=== PATIENT | female | born 1975 | race Caucasian/White ===

== ENCOUNTER → 2017-07-10 | Outpatient (CLI) | payer BC ==
--- NOTE | 2017-07-10 09:18 | MM ---
Reason for exam: screening (asymptomatic). Baseline mammogram. History: Taking hormonal contraceptives for 2 years beginning at age 40. Physical Findings: Nurse did not find any significant physical abnormalities on exam. MG Screening Mammo w CAD Bilateral CC and MLO view(s) were taken. The breast tissue is heterogeneously dense. This may lower the sensitivity of mammography. Finding: There are faint linear calcifications in the lower inner quadrant, middle position of the right breast 6cm from the nipple. These results were verbally communicated with the patient and result sheet given to the patient on 07/10/17. ASSESSMENT: Incomplete: need additional imaging evaluation, BI-RAD 0 RECOMMENDATION: Special view mammogram of the right breast. [facility] will attempt to contact patient to return for supplemental views.
--- NOTE | 2017-07-10 09:19 | MM ---
Reason for exam: additional evaluation requested from abnormal screening. History: Taking hormonal contraceptives for 2 years beginning at age 40. Physical Findings: Breast exam preformed at baseline screening. MG Work Up Mamm w CAD RT CC with magnification and ML with magnification view(s) were taken of the right breast. The breast tissue is heterogeneously dense. This may lower the sensitivity of mammography. There is no discrete abnormality on magnification views. These results were verbally communicated with the patient and result sheet given to the patient on 07/10/17. ASSESSMENT: Probably benign, BI-RAD 3 RECOMMENDATION: Follow-up diagnostic mammogram of the right breast in 6 months.
== END | disposition home or self-care (01) ==
LOC: RADMAMWWP 07:48
PROVIDERS: ATTEND Obstetrics & Gynecology
DX: Z12.31 Encounter for screening mammogram for malignant neoplasm of breast (principal); R92.8 Other abnormal and inconclusive findings on diagnostic imaging of breast
CPT/HCPCS: 77065; 77067

== ENCOUNTER 2017-12-14 21:04 | Emergency (ER) | payer BC, OTHER ==
[2017-12-14 21:10] VITALS: BP 120/82; PULSE 59; RESP 18; TEMP 97.8
[2017-12-14] MEDS ORDERED: CLINDAMYCIN 150 MG CAP PO STA (21:46)
[2017-12-14] MEDS ORDERED: HYDROcodone/APAP 5-325MG 1 EACH TAB PO STA (21:52)
--- NOTE | 2017-12-14 21:59 | ED ---
General Adult HPI - General Chief complaint: Dental/Oral Stated complaint: dental pain Time Seen by Provider: 12/14/17 21:11 Source: patient, RN notes reviewed Mode of arrival: ambulatory Limitations: no limitations - History of Present Illness Initial comments: 42-year-old female presents to the emergency department for a chief complaint of tooth pain 2 days. Patient states that she has had a cavity in the tooth for months. She states that she was eating trail mix about 2 weeks ago and she cracked her tooth. She states she had an appointment with her dentist and he scheduled a root canal for 5 days from now. She states that for the past 2 days she has started to have pain on the right side of the face from the tooth. She states it is traveling into the right ear. She denies any difficulty opening or closing her jaw. She denies any difficulty swallowing. She denies any swelling under the tongue. She denies any neck pain or stiffness. She states she is concerned she may need antibiotics. She states she has been taking Motrin and it has only been helping minimally. Patient has no other complaints at this time including shortness of breath, chest pain, abdominal pain, nausea or vomiting, headache, or visual changes. - Related Data Previous Rx's Medication Instructions Recorded Clindamycin [Cleocin] 450 mg PO Q8H 10 Days capsule 12/14/17 Ibuprofen [Motrin] 800 mg PO Q8H PRN #20 tab 12/14/17 Allergies Allergy/AdvReac Type Severity Reaction Status Date / Time Penicillins Allergy Rash/Hives Verified 12/14/17 21:10 Review of Systems ROS Statement: Those systems with pertinent positive or pertinent negative responses have been documented in the HPI. ROS Other: All systems not noted in ROS Statement are negative. Past Medical History Past Medical History: No Reported History History of Any Multi-Drug Resistant Organisms: None Reported Past Surgical History: Cholecystectomy, Tonsillectomy Additional Past Surgical History / Comment(s): gastric sleeve Past Psychological History: No Psychological Hx Reported Smoking Status: Never smoker Past Alcohol Use History: None Reported Past Drug Use History: None Reported General Exam Limitations: no limitations General appearance: alert, in no apparent distress Head exam: Present: atraumatic, normocephalic, normal inspection Eye exam: Present: normal appearance, PERRL, EOMI. Absent: scleral icterus, conjunctival injection, periorbital swelling ENT exam: Present: normal exam, mucous membranes moist, TM's normal bilaterally , normal external ear exam. Absent: normal oropharynx (Tenderness to tooth 4 with percussion of tongue blade. Tooth 1 through 3 are missing. No evidence of abscess with inspection or palpation of the gumline. Uvula midline. No tenderness or swelling noted sublingually.) Neck exam: Present: normal inspection, full ROM. Absent: tenderness, meningismus, lymphadenopathy Respiratory exam: Present: normal lung sounds bilaterally. Absent: respiratory distress, wheezes, rales, rhonchi, stridor Cardiovascular Exam: Present: regular rate, normal rhythm, normal heart sounds. Absent: systolic murmur, diastolic murmur, rubs, gallop, clicks Neurological exam: Present: alert, oriented X3, CN II-XII intact Psychiatric exam: Present: normal affect, normal mood Course Vital Signs 12/14/17 21:06 Temperature 97.8 F Pulse Rate 59 L Respiratory 18 Rate Blood Pressure 120/82 O2 Sat by Pulse 100 Oximetry Medical Decision Making - Medical Decision Making 42-year-old female presents for a chief complaint of until pain 2 days. Patient states she is scheduled for a root canal in 5 days. She states that 2 days ago she suddenly started to have pain in the right-sided face. She states it is all over today from the tooth. She has shooting pain to the right ear. She denies neck pain or stiffness, swelling under the tongue, or difficulty opening the jaw. Patient has tenderness to percussion of tooth 4. No evidence of abscess on inspection. Patient is penicillin ALLERGIC. She will be given clindamycin. She was given a dose here. Patient also requests a prescription for Motrin 800. She states she has been taking for Motrin 200s but states she does not like to swallow for pills. She was given this prescription by educated to food when taking this medication. She will follow-up with her dentist on Saturday. She will return here if she has any worsening symptoms. Disposition Clinical Impression: Pain, dental Disposition: HOME SELF-CARE Condition: Good Instructions: Dental Caries (ED) Additional Instructions: Please take antibiotic as directed. Please take Motrin and Tylenol for pain. Please follow-up with dentist in 1-2 days. Attend your appointment for a root canal next week. Return to the emergency department if you have any worsening symptoms. Prescriptions: Clindamycin [Cleocin] 450 mg PO Q8H 10 Days capsule Ibuprofen [Motrin] 800 mg PO Q8H PRN #20 tab PRN Reason: Pain Is patient prescribed a controlled substance at d/c from ED?: No Referrals: Destin Soliman MD [Primary Care Provider] - 1-2 days Time of Disposition: 22:00
== END 2017-12-14 22:20 | disposition home or self-care (01) ==
LOC: EC 21:04
DX: K08.89 Other specified disorders of teeth and supporting structures (principal); Z88.0 Allergy status to penicillin
CPT/HCPCS: 99282

== ENCOUNTER 2019-11-27 18:45 | Emergency (ER) | payer OTHER ==
[2019-11-27] MEDS ORDERED: ACET/COD 300 MG/30 MG STARTER PACK 6 TAB BTL PO STA (19:38)
[2019-11-27] MEDS ORDERED: KETOROLAC 15 MG/ML 1 ML VIAL IM STA (19:38)
[2019-11-27] MEDS ORDERED: Acetaminophen-Codeine 300-30mg TAB PO STA (19:38)
[2019-11-27] MEDS ORDERED: methylPREDNISolone SOD SUCCI 125 MG/2 ML VIAL IM ONE (19:38)
--- NOTE | 2019-11-27 20:01 | ED ---
General Adult HPI - General Chief complaint: Back Pain/Injury Stated complaint: Backpain Time Seen by Provider: 11/27/19 19:05 Source: patient, RN notes reviewed, old records reviewed Mode of arrival: ambulatory Limitations: no limitations - History of Present Illness Initial comments: 44-year-old female patient presents to ED for evaluation of left paralumbar back pain. Patient forced that she is of back pain her whole life however she isn't having back pain worse for the last 6 months or so. Patient reports that she has been having radiculopathies down her left gluteal region going down to her leg. She denies any recent falls or trauma. She denies any saddle anesthesia or loss of bowel or bladder control or any weakness. Patient saw her primary care provider for this and reportedly had x-rays. Denies any other acute complaints. Denies any chance of . Systemic: Pt denies fatigue, fever/chills, rash. Pt denies weakness, night s weats, weight loss. Neuro: Pt denies headache, visual disturbances, syncope or pre-syncope. HEENT: Pt denies ocular discharge or irritation, otalgia, rhinorrhea, pharyngitis or notable lymphadenopathy. Cardiopulmonary: Pt denies chest pain, SOB, heart palpitations, dyspnea on exertion. Abdominal/GI: Pt denies abdominal pain, n/v/d. : Pt denies dysuria, burning w/ urination, frequency/urgency. Denies new onset urinary or bowel incontinence. Neuro: Pt denies new onset weakness. - Related Data Previous Rx's Medication Instructions Recorded Clindamycin [Cleocin] 450 mg PO Q8H 10 Days capsule 12/14/17 Ibuprofen [Motrin] 800 mg PO Q8H PRN #20 tab 12/14/17 predniSONE 50 mg PO DAILY #5 tab 11/27/19 Allergies Allergy/AdvReac Type Severity Reaction Status Date / Time Penicillins Allergy Rash/Hives Verified 11/27/19 18:56 Review of Systems ROS Statement: Those systems with pertinent positive or pertinent negative responses have been documented in the HPI. ROS Other: All systems not noted in ROS Statement are negative. Past Medical History Past Medical History: No Reported History Additional Past Medical History / Comment(s): back pain History of Any Multi-Drug Resistant Organisms: None Reported Past Surgical History: Cholecystectomy, Tonsillectomy Additional Past Surgical History / Comment(s): gastric sleeve Past Psychological History: No Psychological Hx Reported Smoking Status: Never smoker Past Alcohol Use History: None Reported Past Drug Use History: None Reported General Exam - General Exam Comments Initial Comments: Constitutional: NAD, AOX3, Pt has pleasant affect. HEENT: NC/AT, trachea midline, neck supple, no lymphadenopathy. External ears appear normal, without discharge. Mucous membranes moist. Eyes PERRLA, EOM intact. There is no scleral icterus. No pallor noted. Cardiopulmonary: RRR, no murmurs, rubs or gallops, no JVD noted. Lungs CTAB in anterior and posterior guillaume. No peripheral edema. Abdominal exam: Abdomen soft and non-distended. Neuro: CN II-XII grossly intact. No nuchal rigidity. No raccon eyes, no gonsales sign, no hemotympanum. No cervical spinal tenderness. MSK: No posterior calf tenderness bilaterally, homans sign negative bilaterally. Posterior tibialis and radial pulse +2 bilaterally. Sensation intact in upper and lower extremities. Full active ROM in upper and lower extremities, 5/5 stregnth. 5/5 strength psoas, quadriceps, hamstring muscles lower extremity bilaterally. Heel toe walking is intact. Sensation is intact. Limitations: no limitations Course Vital Signs 11/27/19 18:52 Temperature 98.8 F Pulse Rate 94 Respiratory 18 Rate Blood Pressure 128/88 O2 Sat by Pulse 99 Oximetry Medical Decision Making - Medical Decision Making 44-year-old female patient presents ED for evaluation of lumbar back pain with radiculopathy. Ongoing the last 6 months. Denies any red flag symptoms. Patient recently had plain films are decision-making does not wish to have any more done today. Will be treated with burst steroids and will be given outpatient follow-up with orthopedics as was primary care provider. Case discussed with Dr. Miller. Disposition Clinical Impression: Lumbar back sprain Disposition: HOME SELF-CARE Condition: Stable Instructions (If sedation given, give patient instructions): Acute Low Back Pain (ED) Additional Instructions: Take steroids as directed. May use Tylenol #3 as needed for pain. Return to ER if any worsening symptoms. Follow up with orthopedic consult tomorrow. Follow-up with primary care provider tomorrow. Prescriptions: predniSONE 50 mg PO DAILY #5 tab Is patient prescribed a controlled substance at d/c from ED?: No Referrals: Rajendra Sage DO [Primary Care Provider] - 1-2 days Hieu Álvarez DO [Doctor of Osteopathic Medicine] - 1-2 days
[2019-11-27 21:20] VITALS: BP 123/76; PULSE 78; RESP 16; TEMP 98.4
== END 2019-11-27 20:47 | disposition home or self-care (01) ==
LOC: EC 18:45
DX: S33.5XXA Sprain of ligaments of lumbar spine, initial encounter (principal); M54.16 Radiculopathy, lumbar region; Z88.0 Allergy status to penicillin; X58.XXXA Exposure to other specified factors, initial encounter
CPT/HCPCS: 99284; 96372 ×2; J2930; J1885

== ENCOUNTER 2019-11-28 08:02 | Emergency (ER) | payer OTHER ==
[2019-11-28 08:07] VITALS: BP 151/80; PULSE 83; RESP 18; TEMP 98.5
[2019-11-28] MEDS ORDERED: HYDROmorphone 1 MG/ML 1 ML SYRINGE IM STA (08:37)
--- NOTE | 2019-11-28 08:40 | ED ---
Back Pain HPI - General Chief Complaint: Back Pain/Injury Stated Complaint: lower back pain Time Seen by Provider: 11/28/19 08:09 Source: patient, RN notes reviewed Limitations: no limitations - History of Present Illness Initial Comments: This is a 44-year-old female presents emergency Department with chief complaint low back pain. She's been having worsening back pain last 6 months. Patient states she had no falls or injuries. Patient states she started with chronic back pain since age 16. Patient states that she was told to take magnesium, do stretching and to lose weight by her PCP. Patient states has not helped. Patient states that the pain persisted and has been rating down her left leg for almost 2 months. Patient states that she has some numbness and tingling. She denies any decreased strength or any function. Patient states that she's had no bowel incontinence or bladder retention. Patient states she has no saddle anesthesias. Patient states that symptoms radiate down her left leg and posterior aspect to his toes. She states all the pain is in her low back. Patient has no mental abdominal pain. Patient states that she was started on steroids yesterday was given Tylenol with codeine with minimal relief of her symptoms. Patient states she does get relief of symptoms when she lays on her back. She states that she was going to the chiropractor every other day for several weeks. - Related Data Previous Rx's Medication Instructions Recorded Clindamycin [Cleocin] 450 mg PO Q8H 10 Days capsule 12/14/17 Ibuprofen [Motrin] 800 mg PO Q8H PRN #20 tab 12/14/17 predniSONE 50 mg PO DAILY #5 tab 11/27/19 HYDROcodone/APAP 7.5-325MG [[place] 1 tab PO Q6HR PRN 3 Days #12 tab 11/28/19 7.5-325] Orphenadrine [Norflex] 100 mg PO Q12H #14 tablet.er 11/28/19 Allergies Allergy/AdvReac Type Severity Reaction Status Date / Time Penicillins Allergy Rash/Hives Verified 11/28/19 08:07 Review of Systems ROS Statement: Those systems with pertinent positive or pertinent negative responses have been documented in the HPI. ROS Other: All systems not noted in ROS Statement are negative. Past Medical History Past Medical History: No Reported History Additional Past Medical History / Comment(s): back pain History of Any Multi-Drug Resistant Organisms: None Reported Past Surgical History: Cholecystectomy, Tonsillectomy Additional Past Surgical History / Comment(s): gastric sleeve Past Psychological History: No Psychological Hx Reported Smoking Status: Never smoker Past Alcohol Use History: None Reported Past Drug Use History: None Reported General Exam Limitations: no limitations General appearance: alert, in no apparent distress Head exam: Present: atraumatic, normocephalic, normal inspection Neck exam: Present: normal inspection, full ROM. Absent: tenderness, meningismus, lymphadenopathy Respiratory exam: Present: normal lung sounds bilaterally. Absent: respiratory distress, wheezes, rales, rhonchi, stridor Cardiovascular Exam: Present: regular rate, normal rhythm, normal heart sounds. Absent: systolic murmur, diastolic murmur, rubs, gallop, clicks GI/Abdominal exam: Present: soft, normal bowel sounds. Absent: distended, tenderness, guarding, rebound, rigid Extremities exam: Present: other (Lower extremity strength equal bilaterally there is no calf tenderness, equal color equal warmth there is no significant swelling) Back exam: Present: normal inspection, full ROM (Patient has full range of motion but reports moderate discomfort), tenderness (Lumbar), paraspinal tenderness. Absent: CVA tenderness (R), CVA tenderness (L), muscle spasm, vertebral tenderness Neurological exam: Present: alert, oriented X3, CN II-XII intact, normal gait, reflexes normal. Absent: motor sensory deficit Skin exam: Present: warm, dry, intact, normal color. Absent: rash Course Vital Signs 11/28/19 08:04 Temperature 98.5 F Pulse Rate 83 Respiratory 18 Rate Blood Pressure 151/80 O2 Sat by Pulse 98 Oximetry Medical Decision Making - Medical Decision Making 44-year-old female presents did for low back pain she's had prior x-rays with no acute findings. She's been recommended to follow up with MRI and has appointment scheduled for this. Patient will follow-up with on-call orthopedic back specialist Dr. Álvarez and will continue steroids. Patient provided pain relief. She has no red flag symptoms. Patient be discharged in stable condition return parameters were discussed. Disposition Clinical Impression: Lumbar radiculopathy, Lumbar back pain Disposition: HOME SELF-CARE Condition: Stable Instructions (If sedation given, give patient instructions): Acute Low Back Pain (ED), Lumbar Radiculopathy (ED), Lower Back Exercises (ED) Additional Instructions: Please return to the Emergency Department if symptoms worsen or any other concerns. Prescriptions: HYDROcodone/APAP 7.5-325MG [[place] 7.5-325] 1 tab PO Q6HR PRN 3 Days #12 tab PRN Reason: pain Orphenadrine [Norflex] 100 mg PO Q12H #14 tablet.er Is patient prescribed a controlled substance at d/c from ED?: Yes When asked, does pt state using other controlled substances?: No If prescribed controlled substance>3 days was MAPS reviewed?: Prescribed <3 Days If opioid is for acute pain is fill amount 7 days or less?: Yes If Rx opioid, was Start Talking consent form obtained?: Yes Referrals: Rajendra Sage DO [Primary Care Provider] - 1-2 days Hieu Álvarez DO [Doctor of Osteopathic Medicine] - 1-2 days Time of Disposition: 08:38
== END 2019-11-28 08:48 | disposition home or self-care (01) ==
LOC: EC 08:02
DX: M54.16 Radiculopathy, lumbar region (principal); Z88.0 Allergy status to penicillin
CPT/HCPCS: 99283; 96372; J1170

== ENCOUNTER 2019-12-03 11:39 | Inpatient (IN) | payer OTHER ==
[2019-12-03] MEDS ORDERED: MORPHINE SULFATE 4 MG/ML SYRINGE IVP STA (12:11)
[2019-12-03] MEDS ORDERED: KETOROLAC 15 MG/ML 1 ML VIAL IVP STA (12:11)
[2019-12-03] MEDS ORDERED: DEXAMETHASONE SOD PHOSPHATE 10 MG/ML 1 ML VIAL IV STA (12:12)
--- NOTE | 2019-12-03 12:23 | ED ---
Back Pain HPI - General Source: patient, RN notes reviewed, old records reviewed Limitations: no limitations <Valorie Altamirano - Last Filed: 12/03/19 15:43> <Tita Miller - Last Filed: 12/09/19 00:55> - General Chief Complaint: Back Pain/Injury Stated Complaint: Revisit - Back Pain Time Seen by Provider: 12/03/19 11:52 - History of Present Illness Initial Comments: this Patient is a 44-year-old female who presents emergency department today with chief complaint of chronic lower back pain. She reports it's been severe for the past 3-6 months but acutely worse over the past week. She denied any specific fall or trauma for worsening pain. She reports the pain is severe she does any standing or moving. She lays with her back on a flat surface she reports relief of her symptoms. She's been taking muscle relaxers pain medication and steroids as prescribed from 2 previous ER visits. She denies saddle anesthesias. She states that she has an upcoming appointment tomorrow with. Back specialist. Patient reports that the pain was unbearable today and she came to the ER for the third time. Patient denies any chest pain, nausea or vomiting. She reports no changes in stools or urine. she reports that she had an x-ray done 3 weeks ago by her PCP. (Valorie Altamirano) - Related Data Home Medications Medication Instructions Recorded Confirmed HYDROcodone/APAP 7.5-325MG [[place] 1 tab PO Q6H PRN 12/03/19 12/03/19 7.5-325] Orphenadrine [Norflex] 100 mg PO Q12H PRN 12/03/19 12/03/19 Previous Rx's Medication Instructions Recorded Cyclobenzaprine [Flexeril] 10 mg PO TID PRN #40 tab 12/06/19 Hydrocodone/Acetaminophen [[place] 1 tab PO Q4-6H PRN #56 tab 12/06/19 7.5-325] Ibuprofen [Motrin] 600 mg PO Q6HR PRN #90 tab 12/06/19 Sennosides/Docusate Sodium [[place] 1 each PO BID PRN #20 capsule 12/06/19 Plus 8.6-50 mg Softgel] Allergies Allergy/AdvReac Type Severity Reaction Status Date / Time Penicillins Allergy Rash/Hives Verified 12/03/19 15:45 Review of Systems ROS Other: All systems not noted in ROS Statement are negative. <Valorie Altamirano - Last Filed: 12/03/19 15:43> ROS Other: All systems not noted in ROS Statement are negative. <Tita Miller - Last Filed: 12/09/19 00:55> ROS Statement: Those systems with pertinent positive or pertinent negative responses have been documented in the HPI. Past Medical History Past Medical History: No Reported History Additional Past Medical History / Comment(s): back pain History of Any Multi-Drug Resistant Organisms: None Reported Past Surgical History: Cholecystectomy, Tonsillectomy Additional Past Surgical History / Comment(s): gastric sleeve Past Psychological History: No Psychological Hx Reported Smoking Status: Never smoker Past Alcohol Use History: None Reported Past Drug Use History: None Reported <Valorie Altamirano - Last Filed: 12/03/19 15:43> General Exam Limitations: no limitations General appearance: alert, in no apparent distress Head exam: Present: atraumatic, normocephalic, normal inspection Eye exam: Present: normal appearance, PERRL, EOMI. Absent: scleral icterus, conjunctival injection, periorbital swelling ENT exam: Present: normal exam, mucous membranes moist Neck exam: Present: normal inspection. Absent: tenderness, meningismus, lymphadenopathy Respiratory exam: Present: normal lung sounds bilaterally. Absent: respiratory distress, wheezes, rales, rhonchi, stridor Cardiovascular Exam: Present: regular rate, normal rhythm, normal heart sounds. Absent: systolic murmur, diastolic murmur, rubs, gallop, clicks GI/Abdominal exam: Present: soft, normal bowel sounds. Absent: distended, tenderness, guarding, rebound, rigid Extremities exam: Present: normal inspection, full ROM, normal capillary refill. Absent: tenderness, pedal edema, joint swelling, calf tenderness Back exam: Present: normal inspection Neurological exam: Present: alert, oriented X3, CN II-XII intact Psychiatric exam: Present: normal affect, normal mood Skin exam: Present: warm, dry, intact, normal color. Absent: rash <Valorie Altamirano - Last Filed: 12/03/19 15:43> - General Exam Comments Initial Comments: his is an alert and oriented 44-year-old female. Patient is laying flat on the bed. Patient appears in moderate discomfort. (Valorie Altamirano) Course Vital Signs 12/03/19 12/03/19 12/03/19 11:40 12:45 14:30 Temperature 97.2 F L Pulse Rate 78 64 61 Respiratory 8 L 18 18 Rate Blood Pressure 129/89 135/75 139/69 O2 Sat by Pulse 99 100 99 Oximetry 12/03/19 12/03/19 15:56 19:06 Temperature 98.1 F 97.9 F Pulse Rate 68 74 Respiratory 18 18 Rate Blood Pressure 121/63 119/67 O2 Sat by Pulse 98 100 Oximetry Medical Decision Making - Lab Data Result diagrams: 12/03/19 12:17 12/03/19 12:17 - Radiology Data Radiology results: report reviewed <Valorie Altamirano - Last Filed: 12/03/19 15:43> - Lab Data Result diagrams: 12/06/19 05:39 12/06/19 05:39 <Tita Miller - Last Filed: 12/09/19 00:55> - Medical Decision Making 44-year-old female presents return today for the third time this week for intractable back pain. Taking steroids muscle relaxers and pain medication without relief. Patient states she down the left leg. She denies saddle anesthesias. Patient had a computed tomography scan today which shows L5-S1 disc herniation with S1 nerve encroachment. Patient inverted his results and discuss is consistent with patient's pain and symptoms. With Patient being here for 3 times and pain management not controlled at home discussed [place] for observation. IV steroids anti-inflammatory medicine. Patient was intending to see Dr. Edwards tomorrow. Patient will have consult to Dr. Álvarez. (Valorie Altamirano) I was available for consultation in the emergency department. The history and physical exam were done by the midlevel provider. I was consulted for this patients care. I reviewed the case with the midlevel provider and based on their presentation of the patient, I agree with the assessment, medical decision making and plan of care as documented. Chart was dictated using [employer] dictation software. Attempts were made to correct any dictation errors however some typographical errors may persist. Patient was seen during a national state of emergency due to the Covid-19 pandemic. (Tita Miller) - Lab Data Lab Results 12/03/19 12/03/19 12/03/19 Range/Units 12:17 12:17 12:17 WBC 11.0 H (3.8-10.6) k/uL RBC 4.60 (3.80-5.40) m/uL Hgb 13.7 (11.4-16.0) gm/dL Hct 43.9 (34.0-46.0) % MCV 95.3 (80.0-100.0) fL MCH 29.7 (25.0-35.0) pg MCHC 31.2 (31.0-37.0) g/dL RDW 12.8 (11.5-15.5) % Plt Count 301 (150-450) k/uL Neutrophils % 65 % Lymphocytes % 27 % Monocytes % 6 % Eosinophils % 1 % Basophils % 0 % Neutrophils # 7.1 (1.3-7.7) k/uL Lymphocytes # 3.0 (1.0-4.8) k/uL Monocytes # 0.6 (0-1.0) k/uL Eosinophils # 0.1 (0-0.7) k/uL Basophils # 0.0 (0-0.2) k/uL ESR (0-20) mm/hr PT 10.5 (9.0-12.0) sec INR 1.0 (<1.2) APTT 21.9 L (22.0-30.0) sec Sodium 137 (137-145) mmol/L Potassium 4.0 (3.5-5.1) mmol/L Chloride 101 (98-107) mmol/L Carbon Dioxide 31 H (22-30) mmol/L Anion Gap 5 mmol/L BUN 17 (7-17) mg/dL Creatinine 0.56 (0.52-1.04) mg/dL Est GFR (CKD-EPI)AfAm >90 (>60 ml/min/1.73 sqM) Est GFR (CKD-EPI)NonAf >90 (>60 ml/min/1.73 sqM) Glucose 92 (74-99) mg/dL Calcium 9.2 (8.4-10.2) mg/dL C-Reactive Protein (<10.0) mg/L HCG, Qual 12/04/19 12/04/1920 Range/Units 11:15 11:15 11:15 WBC (3.8-10.6) k/uL RBC (3.80-5.40) m/uL Hgb (11.4-16.0) gm/dL Hct (34.0-46.0) % MCV (80.0-100.0) fL MCH (25.0-35.0) pg MCHC (31.0-37.0) g/dL RDW (11.5-15.5) % Plt Count (150-450) k/uL Neutrophils % % Lymphocytes % % Monocytes % % Eosinophils % % Basophils % % Neutrophils # (1.3-7.7) k/uL Lymphocytes # (1.0-4.8) k/uL Monocytes # (0-1.0) k/uL Eosinophils # (0-0.7) k/uL Basophils # (0-0.2) k/uL ESR 3 (0-20) mm/hr PT (9.0-12.0) sec INR (<1.2) APTT (22.0-30.0) sec Sodium (137-145) mmol/L Potassium (3.5-5.1) mmol/L Chloride (98-107) mmol/L Carbon Dioxide (22-30) mmol/L Anion Gap mmol/L BUN (7-17) mg/dL Creatinine (0.52-1.04) mg/dL Est GFR (CKD-EPI)AfAm (>60 ml/min/1.73 sqM) Est GFR (CKD-EPI)NonAf (>60 ml/min/1.73 sqM) Glucose (74-99) mg/dL Calcium (8.4-10.2) mg/dL C-Reactive Protein 9.0 (<10.0) mg/L HCG, Qual Not Detected - Radiology Data Degenerative changes and lower spine as detailed above. Eccentric disc herniation L5-S1 level appears to Left S1 Nerve. Correlate Clinically. (Valorie Altamirano) Disposition Is patient prescribed a controlled substance at d/c from ED?: No Time of Disposition: 15:45 <Valorie Altamirano - Last Filed: 12/03/19 15:43> <Tita Miller - Last Filed: 12/09/19 00:55> Clinical Impression: Lumbar back pain, Intractable back pain Disposition: ADMITTED IP TO THIS [facility] Condition: Stable
[2019-12-03 13:19] LABS: Basophils % (A) 0 %; Eosinophils # (A) 0.1 k/uL (0-0.7); Eosinophils % (A) 1 %; HCT 43.9 % (34.0-46.0); HGB 13.7 gm/dL (11.4-16.0); Lymphocytes % (A) 27 %; MCH 29.7 pg (25.0-35.0); MCHC 31.2 g/dL (31.0-37.0); MCV 95.3 fL (80.0-100.0); Mean Platelet Volume 7.9; Monocytes # (A) 0.6 k/uL (0-1.0); Monocytes % (A) 6 %; Neutrophils # (A) 7.1 k/uL (1.3-7.7); Neutrophils % (A) 65 %; Platelet Count 301 k/uL (150-450); RDW 12.8 % (11.5-15.5)
[2019-12-03 13:36] LABS: African American GFR (CKD) >90 (>60 ml/min/1.73 sqM); Anion Gap 5 mmol/L; Blood Urea Nitrogen 17 mg/dL (7-17); Calcium 9.2 mg/dL (8.4-10.2); Carbon Dioxide 31 mmol/L (22-30); Chloride 101 mmol/L (98-107); Glucose 92 mg/dL (74-99); Non-African American GFR(CKD) >90 (>60 ml/min/1.73 sqM); Sodium 137 mmol/L (137-145)
[2019-12-03 13:37] LABS: Partial Thromboplastin Time 21.9 sec (22.0-30.0); Prothrombin Time 10.5 sec (9.0-12.0)
--- NOTE | 2019-12-03 14:38 | CT ---
EXAMINATION TYPE: CT lumbar spine wo con DATE OF EXAM: 12/03/2019 2:04 PM COMPARISON: None. HISTORY: Sciatica, 3rd visit per order. Low back pain. CT DLP: 1174.5 mGycm Automated exposure control for dose reduction was used. Unenhanced CT of the lumbar spine was performed. Bone and soft tissue window settings are submitted as well as coronal and sagittal reconstructions. 5 lumbar type vertebra are present. Lumbar spine show satisfactory alignment without evidence of acut e fracture or dislocation. Vertebral body heights and disc space heights are maintained. Spinal canal grossly preserved. Axial images show upper to mid lumbar level to appear within normal limits. Axial images at L4-L5 level mild/moderate facet arthropathy ligament flavum hypertrophy effacing post erior lateral thecal sac with mild broad-based posterior disc protrusion effacing anterior thecal sac on axial image 54, there is mild left greater than right bilateral anterior inferior neural foramina l narrowing. Axial images at L5-S1 level mild facet arthropathy bilaterally. There is a broad-based left paracentr al disc protrusion axial image 64 effacing antral thecal sac, this is likely encroaching along the ce ntral left S1 nerve. Disc herniation measures 13 mm transversely by 8 mm AP diameter. No suspicious incidental retroperitoneal findings. Partial visualization of central metallic IUD in t he somewhat prominent lobulated uterus. IMPRESSION: Degenerative changes lower lumbar spine as detailed above. Eccentric disc herniation L5-S 1 level appears to encroach on central left S1 nerve. Correlate clinically.
[2019-12-03] MEDS ORDERED: NALOXONE 0.4 MG/ML 1 ML VIAL IV PRN (15:46)
[2019-12-03] MEDS ORDERED: HYDROcodone/APAP 7.5-325MG 1 EACH TAB PO PRN (16:18)
[2019-12-03] MEDS: methylPREDNISolone SOD SUCCI 125 MG/2 ML VIAL IVP SCH ×2 (19:00→23:15)
[2019-12-03] MEDS: MORPHINE SULFATE 4 MG/ML SYRINGE IV PRN ×2 (19:14→23:15)
[2019-12-03] MEDS: SODIUM CHLORIDE 0.9% 1,000 ML IV SCH (19:14)
[2019-12-04] MEDS: MORPHINE SULFATE 4 MG/ML SYRINGE IV PRN ×4 (03:28→21:05)
--- NOTE | 2019-12-04 08:27 | P.CNOR ---
History of Present Illness - HPI Consult date: 12/04/19 Consult reason: low back pain History of present illness: HISTORY: This Patient is a 44-year-old female who presents emergency department today with chief complaint of chronic lower back pain. She reports it's been severe for the past 3-6 months but acutely worse over the past week. She denied any specific fall or trauma for worsening pain. She reports the pain is severe she does any standing or moving. She lays with her back on a flat surface she reports relief of her symptoms. She's been taking muscle relaxers pain medication and steroids as prescribed from 2 previous ER visits. She denies saddle anesthesias. She states that she has an upcoming appointment tomorrow with. Back specialist. Patient reports that the pain was unbearable today and she came to the ER for the third time. Patient denies any chest pain, nausea or vomiting. She reports no changes in stools or urine. she reports that she had an x-ray done 3 weeks ago by her PCP. this Patient is a 44-year-old female who presents emergency department today with chief complaint of chronic lower back pain. She reports it's been severe for the past 3-6 months but acutely worse over the past week. She denied any specific fall o r trauma for worsening pain. She reports the pain is severe she does any standing or moving. She lays with her back on a flat surface she reports relief of her symptoms. She's been taking muscle relaxers pain medication and steroids as prescribed from 2 previous ER visits. She denies saddle anesthesias. She states that she has an upcoming appointment tomorrow with. Back specialist. Patient reports that the pain was unbearable today and she came to the ER for the third time. Patient denies any chest pain, nausea or vomiting. She reports no changes in stools or urine. she reports that she had an x-ray done 3 weeks ago by her PCP. HPI: Patient was seen and examined in the cardiac observation unit. The patient complains of severe low back pain and left lower extremity pain as well as left lower extremity weakness. This all started a proximally 6 months ago when she bent down and squatted up twisting motion which causes severe back pain. The patient has developed a back pain for most of her life however this is different and seems to be worse. She has pain that radiates down her left lower extremity which is exacerbated by stating her left lower extremity. She states weakness in the left lower extremity she states when it initially happened for like she was dragging her left lower extremity. She denies any bowel or bladder incontinence. She denies any perineal numbness or tingling at this time. She does state severe numbness and tingling in her left lower extremity which goes all the way down her leg. She denies any fevers chills shortness of breath or chest pain at this time. Review of Systems 14 points review of systems completed and as stated in HPI or otherwise negative. Past Medical History Past Medical History: No Reported History Additional Past Medical History / Comment(s): back pain History of Any Multi-Drug Resistant Organisms: None Reported Past Surgical History: Cholecystectomy, Tonsillectomy Additional Past Surgical History / Comment(s): gastric sleeve Past Anesthesia/Blood Transfusion Reactions: No Reported Reaction Past Psychological History: No Psychological Hx Reported Smoking Status: Never smoker Past Alcohol Use History: None Reported Past Drug Use History: None Reported Additional Drug Use History / Comment(s): She denies illicit or recreational drug use. She denies IV drug use. Additional History: She works for [employer] and is currently on the management pathway. She has 2 children at home. Her family suffers from a long history of low back problems. Medications and Allergies Home Medications Medication Instructions Recorded Confirmed Type HYDROcodone/APAP 7.5-325MG [[place] 1 tab PO Q6H PRN 12/03/19 12/03/19 History 7.5-325] Orphenadrine [Norflex] 100 mg PO Q12H PRN 12/03/19 12/03/19 History Allergies Allergy/AdvReac Type Severity Reaction Status Date / Time Penicillins Allergy Rash/Hives Verified 12/03/19 15:45 Physical Examination Osteopathic Statement: *. No significant issues noted on an osteopathic structural exam other than those noted in the History and Physical/Consult. GEN: AOX3, NAD VSS Inspection: There is no erythema or ecchymosis. The patient does have some swelling noted on the left lower portion of her lumbar spine. Palpation: There is tenderness to palpation over the lumbar spine in the paraspinal as well as the midline portion around L4 5 and L5-S1. There is no buttock tenderness there is no piriformis tenderness. There is no greater trochanteric tenderness. Motor: 5/5 shoulder abd/EF/EE/WF/intrinsics 5/5 DF/PF/EHL/FHL/HF/KE/KF except for 4/5 strength in plantar flexion on the left. 4/5 strength in hip flexion on the left secondary to pain and radicular symptoms. 4/5 strength in knee flexion on the left. Reflexes: 2/4 DTR all upper and LE Sensation intact to light touch in C5-T1 as well as L2-S1 distribution Priteo's: Negative bilaterally Clonus: None Babinski: Negative bilaterally She has a slightly obese body habitus. She has a maintain sagittal and coronal alignment She is able to lie flat however she has a positive straight leg raise on the l eft. She has a positive contralateral straight leg raise. Cranial nerves II through XII are grossly intact Her judgment is intact her affect is normal, she states she wants to go back to work. Increased pain with heel strike. Results Lumbar CT is reviewed. This demonstrates maintain sagittal as well as coronal alignment. No anterolisthesis noted. There is noted a left L5-S1 disc herniation which is difficult to determine on computed tomography scan. There is no overt bony foraminal stenosis at these levels. There are subchondral cysts which are noted within the L5 caudal endplate as well as the S1 cranial endplate. There is no overt bony erosion however this is somewhat concerning for potential of infection. There are no other fractures or dislocations noted. MRI and ending films are pending at this time. - Labs Labs: Abnormal Lab Results - Last 24 Hours (Table) 12/03/19 12/03/19 12/03/19 Range/Units 12:17 12:17 12:17 WBC 11.0 H (3.8-10.6) k/uL APTT 21.9 L (22.0-30.0) sec Carbon Dioxide 31 H (22-30) mmol/L H & H 12/03/19 Range/Units 12:17 Hgb 13.7 (11.4-16.0) gm/dL Hct 43.9 (34.0-46.0) % Coagulation 12/03/19 Range/Units 12:17 INR 1.0 (<1.2) Result Diagrams: 12/03/19 12:17 12/03/19 12:17 Assessment and Plan Assessment: 44-year-old female with 6 months of low back pain and radiculopathy left lower extremity weakness presumed L5-S1 left foraminal disc herniation with MRI pending failed conservative measures. Plan: 1. Appreciate consult 2. MRI lumbar spine with and without contrast to rule out any infectious process 3. Bending films of the lumbar spine to evaluate kinetic motion. 4. Add gabapentin 3 mg by mouth 3 times a day for nerve pain. 5. Consider CHIQUITA if pain management available. Left L5-S1 transforaminal. 6. PT/OT 7. Continue Decadron anti-inflammatories and pain control. Continue muscle relaxer. 8. Await imaging, further recs to follow. Time with Patient: Greater than 30
--- NOTE | 2019-12-04 09:04 | XR ---
EXAMINATION TYPE: XR lumbar spine with bend/flex, 6 views DATE OF EXAM: 12/04/2019 Comparison: None Clinical History: 44-year-old male low back pain with radiculopathy Findings: 5 lumbar type vertebral bodies. Facet arthropathy lower lumbar spine. Vertebral body heights are pres erved and alignment is maintained. No dynamic subluxation on flexion-extension. Impression: Facet arthropathy lower lumbar spine. No vertebral compression collapse or malalignment. No dynamic s ubluxation on flexion-extension.
[2019-12-04] MEDS: GABAPENTIN 300 MG CAP PO SCH ×3 (09:44→21:07)
[2019-12-04] MEDS: PANTOPRAZOLE 40 MG/10 ML VIAL IV SCH (09:44)
[2019-12-04] MEDS: methylPREDNISolone SOD SUCCI 125 MG/2 ML VIAL IVP SCH ×2 (09:44→15:52)
--- NOTE | 2019-12-04 11:14 | MR ---
EXAMINATION TYPE: MR lumbar spine wo/w con DATE OF EXAM: 12/04/2019 COMPARISON: Plain film 12/04/2019 HISTORY: LLE weakness, Severe radiculopathy TECHNIQUE: Multiplanar, multisequence images of the lumbar spine were acquired utilizing 10 mL intravenous Gadav ist gadolinium contrast. L1-L2: Normal disc appearance without desiccation. No herniation, protrusion or disc bulging. No ca nal stenosis is present. Foramina are patent bilaterally. L2-L3: Normal disc appearance without desiccation. No herniation, protrusion or disc bulging. No ca nal stenosis is present. Foramina are patent bilaterally. L3-L4: Normal disc appearance without desiccation. No herniation, protrusion or disc bulging. No ca nal stenosis is present. Foramina are patent bilaterally. L4-L5: Facet arthropathy changes present with hypertrophy ligamentum flavum causing posterior lateral mass effect on the thecal sac. Circumferential posterior disc bulge causes minimal anterior mass eff ect on the thecal sac. No foraminal encroachment or significant spinal stenosis. L5-S1: There is a posterior disc herniation in the left posterior paracentral location which causes d eformity the thecal sac and likely displaces was sterilely the left S1 nerve root. There is facet art hropathy change. No significant spinal stenosis. Lumbar segments are intact. No paraspinal masses are identified. Conus medullaris has a normal appe arance. Loss of disc height and signal greatest at L5-S1 and to lesser extent L4-5. Endplate discogen ic marrow signal change is present, mild multilevel spondylosis. Inferior endplate of L5 shows probab le Schmorl's node formation. Some peripheral enhancement is present at the disc herniation possibly due to granulation tissue. IMPRESSION: Left posterior paracentral disc herniation, correlate for left S1 radiculopathy.
[2019-12-04] MEDS: CYCLOBENZAPRINE 10 MG TAB PO PRN (13:29)
[2019-12-04] MEDS: SODIUM CHLORIDE 0.9% 1,000 ML IV SCH (13:30)
[2019-12-04] MEDS: KETOROLAC 15 MG/ML 1 ML VIAL IVP PRN (13:33)
--- NOTE | 2019-12-04 16:31 | P.PN ---
Progress Note - Text Progress Note Date: 12/04/19 I spoke at length with the patient and her who is in the room with her. The patient understands that she has a large L5-S1 disc radiation on the left which is causing her symptoms. Her symptoms were going on for some time now and conservative management have failed to alleviate her pain. She has been in the ED now for different times with the continued pain and weakness in her left lower extremity and radiculopathy. I discussed with her that surgery is likely a good option due to the size of her disc herniation the correlation with her symptoms. She states that she is unsure now she would like surgery but that she knows that she needs it. She states that she will decide soon on whether or not she wants surgery. Right now she is on the schedule for tomorrow and I told her we would like to know sooner than later if she would like to have the surgery or wait. If you are having with waiting is that she is willing to get weaker as well as more pain and radiculopathy and be right back where she is now wears if we take care of it now we can be done with that and I explained this to her. She understood and agreed. She will let us know her decision. Should she decide to have surgery tomorrow she should be nothing by mouth over at midnight. If she decides she does not want surgery she can have food and she can also be discharged.
[2019-12-04] MEDS: SENNOSIDES-DOCUSATE SODIUM 1 EACH TAB PO SCH (21:08)
--- NOTE | 2019-12-04 21:59 | P.HPIM ---
History of Present Illness H&P Date: 12/04/19 Chief Complaint: Low back pain History of presenting complaint: This is a pleasant 44-year-old patient of Dr. Sarah Sage. Patient's had intermittent low back pain for quite some time. Since May of this year the pain started becoming worse. More so in the last 1 week or so. Pain started radiating down the left leg. No change in the bowels or urine. No fever no chills. Other than a family doctor patient is not followed up with anybody else. Patient bit her visit on November 26 in November 27 to the ER. Was supposed to follow up with Dr. Sherri Elmore. Decided to come in yesterday. Patient tried other conservative management that did not help. Review of systems: GEN.: None EYES: None HEENT: None NECK: None RESPIRATORY: None CARDIOVASCULAR: None GASTROINTESTINAL: None GENITOURINARY: None MUSCULOSKELETAL: As above LYMPHATICS: None HEMATOLOGICAL: None PSYCHIATRY: None NEUROLOGICAL: None Past medical history to include: Low back pain Social history: No smoking or alcohol. . Works at [employer] Family history: Reviewed, noncontributory to presentation Physical examination: VITAL SIGNS: 97.2, 78, 18, 135/75, 100% room air GENERAL: BMI 31.6, laying in bed, not in distress. EYES: Pupils equal. Conjunctiva normal. HEENT: External appearance of nose and ears normal, oral cavity grossly normal. NECK: JVD not raised; masses not palpable. HEART: First and second heart sounds are normal; no edema. LUNGS: Respiratory rate normal; clear to auscultation. ABDOMEN: Soft, nontender, liver spleen not palpable, no masses palpable. PSYCH: Alert and oriented x3; mood and affect normal. NEUROLOGICAL: Cranial nerves grossly intact; no facial asymmetry, power and sensation grossly intact. LYMPHATICS: No lymph nodes palpable in the axilla and neck INVESTIGATIONS, reviewed in the clinical context: White count 11 hemoglobin 13.7 platelets 301 potassium 4 creatinine 0[address]-shows changes of arthritis at L4-L5 and L5-S1 broad-based left paracentral disc protrusion likely encroaching along the central left S1 nerve Assessment: -Acute on chronic low back pain from arthritic changes at L4-L5 and L5-S1. Prostate based left paracentral disc protrusion with some encroachment likely upon S1 nerve, causing left leg radiculopathy -Obesity BMI 31.6 Plan: Patient was put on Neurontin, [place], Toradol, IV Solu-Medrol by Dr. Sherri Elmore. We will add Lovenox for DVT prophylaxis. Care was discussed with the patient and the at the bedside. Questions answered Past Medical History Past Medical History: No Reported History Additional Past Medical History / Comment(s): back pain History of Any Multi-Drug Resistant Organisms: None Reported Past Surgical History: Cholecystectomy, Tonsillectomy Additional Past Surgical History / Comment(s): gastric sleeve Past Anesthesia/Blood Transfusion Reactions: No Reported Reaction Past Psychological History: No Psychological Hx Reported Smoking Status: Never smoker Past Alcohol Use History: None Reported Past Drug Use History: None Reported Additional Drug Use History / Comment(s): She denies illicit or recreational drug use. She denies IV drug use. Medications and Allergies Home Medications Medication Instructions Recorded Confirmed Type HYDROcodone/APAP 7.5-325MG [[place] 1 tab PO Q6H PRN 12/03/19 12/03/19 History 7.5-325] Orphenadrine [Norflex] 100 mg PO Q12H PRN 12/03/19 12/03/19 History Allergies Allergy/AdvReac Type Severity Reaction Status Date / Time Penicillins Allergy Rash/Hives Verified 12/03/19 15:45 Physical Exam Vitals: Vital Signs Temp Pulse Pulse Resp BP BP Pulse Ox 12/04/19 00:00 74 18 12/03/19 23:00 97.9 F 74 18 122/75 97 12/03/19 19:06 97.9 F 74 18 119/67 100 12/03/19 15:56 98.1 F 68 18 121/63 98 12/03/19 14:30 61 18 139/69 99 12/03/19 12:45 64 18 135/75 100 12/03/19 11:40 97.2 F L 78 8 L 129/89 99 Intake and Output 12/03/19 12/04/19 12/04/19 22:59 06:59 14:59 Other: Voiding Method Toilet # Voids 1 1 Weight 99.79 kg Results CBC & Chem 7: 12/03/19 12:17 12/03/19 12:17 Labs: Abnormal Lab Results - Last 24 Hours (Table) 1012/03/19 12/03/19 Range/Units 12:17 12:17 12:17 WBC 11.0 H (3.8-10.6) k/uL APTT 21.9 L (22.0-30.0) sec Carbon Dioxide 31 H (22-30) mmol/L Thrombosis Risk Factor Assmnt - Choose All That Apply Each Factor Represents 1 point: Age 41-60 years, Obesity (BMI >25) Thrombosis Risk Factor Assessment Total Risk Factor Score: 2 Thrombosis Risk Factor Assessment Level: Low Risk
[2019-12-05] MEDS: MORPHINE SULFATE 4 MG/ML SYRINGE IV PRN ×2 (00:57→05:40)
[2019-12-05] MEDS: KETOROLAC 15 MG/ML 1 ML VIAL IVP PRN (06:09)
--- NOTE | 2019-12-05 07:34 | P.PN ---
Progress Note - Text Progress Note Date: 12/05/19 Spine Surgery Risk Review Sheila Wells is a 44 yo female presenting for evaluation of severe back pain, LLE pain, LLE weakness numbness and tingling that has been progressive for the past 4 months. It has brought her to the ED 4x now as it is not getting better with conservative measure . It was my pleasure to have seen and examined Sheila Wells. In our visit today we have had a chance to go over subjective complaints, physical examination findings and treatments including the natural course history without intervention and various interventional options. The patients imaging demonstrates L5-S1 large HNP on L with dural effacement and >50% canal compromise. On physical exam, Sheila Wells demonstrates LLE weakness, positive tensioning signs and inability to ambulate secondary to the pain. I have explained to the patient that as their condition progresses it will cause further neurological deficits and eventual paralysis. Based on the patients imaging, physical exam, and the rapid progression and disabling nature of their symptoms, at this time I recommend surgery in the form or a: L5-S1 decompression and discectomy . I discussed the risk and benefits of this procedure at length with Sheila Wells. The patient agreed to considered pursuing the procedure abovementioned. . Questions were invited and answered, and the patient wishes to proceed as outlined below. Currently, I am recommendin. L5-S1 bilateral laminotomy with discectomy 2. Follow up with PCP for surgical clearance 3. Review of surgical risks and benefits as well as an educational packet on the proposed surgical procedure. Risks: All surgical procedures come with inherent risks, including those related to positioning, anesthesia, intraoperative findings, and postoperative compl ications. It is important to understand that surgery does not come with any guarantee of a successful outcome as complications and adverse events are always possible. The patient was given a handout in office today discussing the surgical procedure and risks associated with the intervention, both of which were discussed with the patient. These risks include but are not limited to the following: * Experiencing same, different or even worse symptoms in back, neck, arms, or legs compared to before surgery. * Requiring further surgery or other forms of treatment presently or at some time in the future at same or other levels of the intended spine surgery. * On an extreme but fortunately relatively rare basis severe complication such as blindness, stroke, heart attack, temporary and/or permanent nerve injury, paralysis, coma, or may occur, sometimes without known explanation. * Surgical complications may include but are not limited to risk of infection, fluid accumulation in the surgical dissection site, including a seroma or hematoma, that requires additional surgery, wound drainage, bleeding, new numbness or weakness, vision changes/loss, spinal fluid leakage, non-healing and/or infected incision, headaches, difficulty or inability to swallow, hoarseness, hemopneumothorax, pneumothorax, impotence, retrograde ejaculation, vaginal dryness; injury to nerves, spinal cord, blood vessels, lymphatics or other vital organs (i.e., bowel injury, injury to the great vessels); heterotopic bone formation; complications related to the hardware such as screws, rods, cages including misplaced hardware, device failure, instrumentation at the wrong spine level, hardware fracture/breakage, or hardware loosening; vertebral failure of the spinal column above or below the newly placed hardware; retained surgical instrumentations or devices and the need for further surgery. * Medical risks of the planned spine surgery include but are not limited to generalized Infections to the whole body or local areas outside of the surgical site (sepsis), heart attack, bleeding, anaphylaxis, meningitis, seizure, epilepsy, hearing loss, burn zhao, laceration of the head or other areas of the body, bruising, hypersensitivity of the skin, bladder over distension; allergic reaction; shoulder injury related to positioning; fat, blood and air clots to other areas of the body like heart, lungs, brain; failure of internal organs such as lungs, kidneys, liver and excessive bleeding. If blood transfusions are necessary, note that transfusions may cause intolerance reactions such as anaphylaxis or other complex reactions. * Despite best efforts, the results of spine surgery might not heal in terms of bone, soft tissues such as skin, fascia, ligaments, and joints. Additionally, in order to achieve best possible results, spine surgery may be carried out beyond the initially planned levels and involve decompression, fusion including insertion of hardware at levels other than the original intended area of surgical interest change some portions of the procedure in order to ensure the best possible outcomes. * With spine surgery and spinal fusion, there are different off label uses of instrumentation (devices, implants and hardware) as well as biological substances (bone morphogenic proteins, demineralized bone matrix) as well as using extra bone from allograft sources (i.e. cadaver bone) or autograft (iliac crest bone, ribs, or the spine itself). The patient has been given information about these practices and their inherent risks and benefits. * [facility] is an educational center that serves as a training facility for neurosurgical and orthopedic spine residents and fellows. Residents are physicians who are completing their surgical intensive training following medical school. They assist in the operating room with direct supervision of the attending surgeons. [place] are surgeons who have completed their training and eligible for board certification. They have opted for an elective year of more specialized training in their field. They assist in the operating room under the supervision of the attending surgeons. Physician assistants are medically trained surgical providers who function in the outpatient, inpatient, and operating room setting under the direct supervision of the attending surgeon. * [facility] has multiple operating rooms with single and overlapping rooms running daily. They currently function under the required guidelines as produced by the [facility] Finance Committee with regards to the overlapping rooms and will continue to comply with changes to this policy as they occur. The requirements include and are complied with as follows: (1) the critical portions of the overlapping rooms will not occur at the same time, (2) the attending physician will be physically present during the critical portions of the procedure and immediately available during the entire case, and (3) a back-up attending is designated should the primary attending not be immediately available. The patient has had a chance to review all the listed information, has been given print outs detailing this information, and has had all his/her questions answered to their satisfaction. It was my pleasure to have seen and examined Sheila Wells. In our visit today we have had a chance to go over my understanding of our patient's current condition, the natural course history without intervention and various interventional options. Questions were invited and answered, and the patient wishes to proceed as outlined above. I have seen and examined the patient for 25 minutes and we have spent more than 50% of the time in repeat and detailed counseling about the patient's condition, its natural course history with out and as much as can be predicted with surgery and re-review of various surgical treatment options. In conclusion, Sheila Wellsluciana requested we proceed with the above suggested surgery and are willing to accept risks and limitations of the suggested surgery as nature of the disease process and our best attempts at treatment for the condition. Thank you again for allowing us to be part of your patient's care. Please don't hesitate to contact me if you have any further questions. Signed and authenticated by: Hieu Gallegos [facility] [address] [place] [address]
[2019-12-05] MEDS ORDERED: CLINDAMYCIN 900 MG in DEXTROSE 5% IN WATER 50 ML IVPB STA ×2 (07:43)
[2019-12-05] MEDS ORDERED: LIDOCAINE 1% INJ 10MG/ML (20 ML MDV) ONE (07:56)
[2019-12-05] MEDS ORDERED: fentaNYL (PF) 50 MCG/ML 2 ML AMP ONE (07:56)
[2019-12-05] MEDS ORDERED: ROCURONIUM 10 MG/ML (10 ML VIAL) IV ONE (07:56)
[2019-12-05] MEDS ORDERED: MIDAZOLAM 2 MG/2 ML VIAL ONE (07:56)
[2019-12-05] MEDS ORDERED: PROPOFOL 10 MG/ML 20 ML VIAL IV ONE (07:56)
[2019-12-05] MEDS ORDERED: SUCCINYLCHOLINE CHLORIDE VIAL 200 MG/10 ML VIAL IV ONE (07:56)
[2019-12-05] MEDS ORDERED: SODIUM CHLORIDE 0.9% 1,000 ML IV ONE (07:59)
[2019-12-05] MEDS ORDERED: LIDOCAINE 2%-EPI 1:100,000 20 ML VIAL SQ ONE (08:03)
[2019-12-05] MEDS ORDERED: BUPIVACAINE (PF) 0.25% 30 ML VIAL SQ ONE (08:03)
[2019-12-05] MEDS ORDERED: LACTATED RINGERS 1,000 ML IV ONE (08:30)
[2019-12-05] MEDS ORDERED: methylPREDNISolone ACETATE 80 MG/ML 1 ML VIAL INJ ONE ×2 (09:42→10:08)
[2019-12-05] MEDS ORDERED: SENNOSIDES 8.6 MG TAB PO PRN (10:31)
[2019-12-05] MEDS ORDERED: CYCLOBENZAPRINE 10 MG TAB PO PRN (10:32)
[2019-12-05 10:44] VITALS: RESP 16
[2019-12-05] MEDS ORDERED: HYDROmorphone 0.5 MG/0.5 ML SYRINGE IVP ONE ×2 (10:50→11:00)
[2019-12-05] MEDS ORDERED: ONDANSETRON 4 MG/2 ML VIAL IVP ONE (11:05)
--- NOTE | 2019-12-05 11:21 | XR ---
EXAMINATION TYPE: XR lumbar spine 2 or 3V, FL guidance operating room DATE OF EXAM: 12/05/2019 CLINICAL HISTORY: Laminectomy L5-S1 TECHNIQUE: Fluoroscopy. COMPARISON: None. FINDINGS: Fluoroscopic guidance was provided during procedure for performing physician. A total of 3 seconds of fluoroscopic time was utilized during the procedure and 3 spot images was acquired. IMPRESSION: As Above.
[2019-12-05] MEDS: HYDROmorphone 0.5 MG/0.5 ML SYRINGE IVP PRN ×2 (12:06→18:00)
--- NOTE | 2019-12-05 13:14 | P.OP ---
Date of Procedure: 12/05/19 Preoperative Diagnosis: L5-S1 HNP, large, with LLE weakness and radiculopathy Postoperative Diagnosis: L5-S1 HNP, large, LLE weakness and radiculopathy Procedure(s) Performed: 1. L5-S1 bilateral laminotomy with microdiscectomy 2. Use of intraoperative microscope Implants: none Anesthesia: GETA Surgeon: Hieu Álvarez ([employer] Deliverer: Katelyn Sparks, FA was present and necessary for all major portions of the procedure) Estimated Blood Loss (ml): 150 IV fluids (ml): 400 Urine output (ml): 0 Pathology: none sent Condition: stable Disposition: PACU Indications for Procedure: 44 yo female presented with 4 months of progressive low back pain, severe LLE pain and progressive LLE weakness. She had been to the ED 4x in the last week secondary to pain and was just trying to get through because she was in a training program for work. She denied any bowel or bladder incontinence. She stated no genital numbness/tingling. She stated continued and worsening pain in her low back that radiated down her left leg. She states he left leg is getting heavy and she was unable to move it normally and it is buckling. Denies any f/c/sob/cp at this time. No conservative measures have helped her thus far. Operative Findings: Lare L5-S1 L HNP with >50% canal encroachment. Description of Procedure: The patient was seen and examined in the pre-operative area. She was also seen and examined by the department of anesthesia who reviewed her chart and deemed her fit for surgery. All pre operative protocols were followed. Informed consent was obtained. Risks and benefits of the procedure were again discussed with the patient. She was ready and willing to undergo the procedure. Her was with her and also agreed. The site was marked. She was given 900 mg of Cleocin IVPBx1 30 min prior to incision for ppx. She was ready for the procedure. The patient was transported to the operative suite by the department of anesthesia. Once in the room, SCDs were placed on B/L LE. She was then drifted off to sleep by the department of anesthesia and GETA was performed. One adequate anesthesia had been obtained the patient was carefully positioned prone on the Trios table. Her arms were placed in the up and out 90/90 position and special attention was paid to padding her wrists, elbows, axilla, chest, hips, knees ankles, feet and genitalia. Once all bony prominences were well padded and she was in good position the lumbar spine was exposed and fluouroscopy was used to bio abi the incision site on the patient. Skin marker was used to abi a midline incision. This was then outlined with 101 drapes and alcohol was used to scrub the back. Operative briefing was then undertaken and all parties were ready. The lumbar spine was then prepped and draped in the normal sterile fashion. Time out was then performed and all parties in agreement with the procedure to be performed. Skin incision was made on previously marked area, midline and electrocautery dissection taken down to the lumbosacral facia. Meticulous hemostasis was achieved. The lumbosacral facia was then cleaned and fully visualized. A bilateral midline sparing aproach to the facia was taken and a subperiostal dissection was taken down the L5 lamina exposing the lamina, pars and IAP. The facet joints were completely maintained. The superior lamina of S1 was also exposed for visualization. Lateral xray was taken with a penfield at the pars of L5 to confirm operative level. Once the bone was cleaned. Microscopic dissection was performed. The versetrac retractors were then placed deep to allow visualization. A high speed ronaldo was then used to create bilateral laminotomies at L5 under microscopic visualization. The ligamentum flavum was identified and was released from the cranial and deep surface of the L5 lamina revealing the exiting S1 nerve root bilaterally. The Left S1 root was extremely inflammed and displaced as was the dura due to the large disc herniation. This was identified and careful blunt dissection was done to fee the nerve roots as well as dura from the disc. This was confirmed under lateral flouroscopy to be the correct position. A nerve root retractor was then used to carefully displace the root and dura to allow for access to the disc herniation and a penfield was used to make an annulotomy. Large fragments of disc, under pressure, extruded and were carefully removed with a pituitary. Pituitary and kerrison were then used to complete the disectomy. Once it was completed a feeler was used to ensure than all disc material had been removed from the epidural space anteriorly and the thecal sac was completly free anteriorly. The foramen were palpated with a lang probe and confirmed to be completely free. The nerve root retractor was removed and the dura had good pulsations. Attention was drawn to the Right side laminotomy and the root and dura were freed in this area. There was no further disc herniation on this side and no other fragments noted. Meticulous hemostasis was then performed with floseal and paddies. The wound was copiously irrigated with Iricept followed by NS 2 L. 1 mg of Dexamethasone was then placed around each laminotomy site followed by T seal to seal the laminotomy. There were no dural tears, rents or leaks. The versetrac retractors were then removed and the wound inspected. There was good hemostasis. The lumbosacral facia was then closed with #1 Vicryl in a simple fashion followed by 0 Vicryl in the subcue, 2-0 Vicryl in the sub dermal layer and 3-0 monocryl in the subcuticular layer. The wound was then cleaned and skin glue placed over the incision. It was then sterilly dressed with an optifoam dressing. The patient was then carefully and atruamatically returned to her hospital bed. She was awakened and extubated by the deparment of anesthesia and transported to PACU in stable condition and having tolerated the procedure very well.
[2019-12-05] MEDS: methylPREDNISolone SOD SUCCI 125 MG/2 ML VIAL IVP SCH ×3 (13:36→18:28)
[2019-12-05] MEDS: PANTOPRAZOLE 40 MG/10 ML VIAL IV SCH (13:37)
[2019-12-05] MEDS: SENNOSIDES-DOCUSATE SODIUM 1 EACH TAB PO SCH ×2 (13:37→20:21)
[2019-12-05] MEDS: GABAPENTIN 300 MG CAP PO SCH ×3 (13:37→20:21)
[2019-12-05] MEDS: HYDROcodone/APAP 5-325MG 1 EACH TAB PO PRN ×2 (13:37→20:21)
[2019-12-05] MEDS: diphenhydrAMINE 25 MG CAP PO PRN ×2 (15:58→20:21)
[2019-12-05] MEDS: CLINDAMYCIN 900 MG in DEXTROSE 5% IN WATER 50 ML IVPB SCH ×4 (17:04→21:47)
[2019-12-05] MEDS: SODIUM CHLORIDE 0.9% 1,000 ML IV SCH (18:27)
[2019-12-05] MEDS: CYCLOBENZAPRINE 10 MG TAB PO PRN (20:21)
[2019-12-05] MEDS: DOCUSATE 100 MG CAP PO SCH (20:21)
[2019-12-05] MEDS: 0.9% NACL WITH KCL 20 MEQ/L 1,000 ML IV SCH ×2 (20:23→21:51)
--- NOTE | 2019-12-05 22:25 | PN ---
PROGRESS NOTE DATE OF SERVICE: 12/05/2019 This 44-year-old woman, being followed by Dr. Rajendra Sage in the outpatient setting admitted with acute on chronic low back pain. The patient underwent L5-S1 bilateral laminectomy with micro diskectomy for herniated nucleus pulposus by Dr. Álvarez. The patient tolerated the procedure well. There is no history of fever, rigors. No history of headache, loss of consciousness, seizures at this time. PHYSICAL EXAMINATION: Alert and oriented x3. Pulse 82, blood pressure 104/65, respirations 16, temperature 98.2, pulse ox 98% on room air. HEENT: Conjunctivae normal. NECK: No JVD. CARDIOVASCULAR: S1, S2 muffled. RESPIRATORY: Breath sounds diminished in the bases. No rhonchi. No crackles. ABDOMEN: Soft. NERVOUS SYSTEM: No focal deficits. Examination of the back status post surgery. LABS: WBC 11 and CO2 31. ASSESSMENT: 1. Severe back pain with L5-S1 herniated nucleus pulposus large with radiculopathy, status post L4-5 L5-S1 bilateral laminectomy with microdiskectomy. 2. Increased WBC. 3. History of cholecystectomy. 4. History of tonsillectomy. 5. History of gastric sleeve. RECOMMENDATIONS AND DISCUSSION: This 44-year-old woman who presented with multiple medical problems, we will monitor the patient closely. Continue the current medications. Symptomatic treatment. DVT prophylaxis. Otherwise, incentive spirometry. Closely follow with Orthopedic Surgery. Further recommendations to follow. Pain management. MMODL / IJN: [id number] /
[2019-12-05] MEDS: HEPARIN SODIUM,PORCINE 5,000 UNIT/ML 1 ML VIAL SQ SCH (23:01)
[2019-12-06] MEDS: HYDROcodone/APAP 5-325MG 1 EACH TAB PO PRN ×2 (05:29→13:16)
[2019-12-06] MEDS: 0.9% NACL WITH KCL 20 MEQ/L 1,000 ML IV SCH (05:31)
[2019-12-06 06:06] LABS: Basophils % (A) 0 %; Eosinophils % (A) 0 %; HCT 36.7 % (34.0-46.0); HGB 11.9 gm/dL (11.4-16.0); Lymphocytes % (A) 18 %; MCH 30.9 pg (25.0-35.0); MCHC 32.5 g/dL (31.0-37.0); Mean Platelet Volume 7.8; Monocytes # (A) 0.9 k/uL (0-1.0); Monocytes % (A) 8 %; Neutrophils # (A) 8.1 k/uL (1.3-7.7); Neutrophils % (A) 73 %; Platelet Count 244 k/uL (150-450); RBC 3.86 m/uL (3.80-5.40); RDW 12.3 % (11.5-15.5); WBC 11.1 k/uL (3.8-10.6)
[2019-12-06 07:22] VITALS: BP 115/72; PULSE 70; TEMP 98
[2019-12-06] MEDS: PANTOPRAZOLE 40 MG/10 ML VIAL IV SCH (07:45)
[2019-12-06] MEDS: SENNOSIDES-DOCUSATE SODIUM 1 EACH TAB PO SCH (07:45)
[2019-12-06] MEDS: GABAPENTIN 300 MG CAP PO SCH (07:45)
[2019-12-06] MEDS: DOCUSATE 100 MG CAP PO SCH (07:46)
[2019-12-06] MEDS: HEPARIN SODIUM,PORCINE 5,000 UNIT/ML 1 ML VIAL SQ SCH (07:51)
--- NOTE | 2019-12-06 08:00 | P.PN ---
Progress Note - Text Progress Note Date: 12/06/19 Patient was seen and examined this morning. She is doing much better than yesterday. He states that the pain in her leg is completely gone she is able to move her leg better has been up to the bathroom. She denies any bowel or bladder incontinence patient has a peroneal numbness or tingling. She states only pain in her back which is well controlled. GEN: AOX3, NAD VSS Inspection: No erythema or ecchymosis or edema Palpation: Mild pain to palpation no fluctuance no hematoma Motor: 5/5 shoulder abd/EF/EE/WF/intrinsics 5/5 DF/PF/EHL/FHL/HF/KE/KF Reflexes: 2/4 DTR all upper and LE Sensation intact to light touch in C5-T1 as well as L2-S1 distribution Prieto's: Negative bilaterally Clonus: None Babinski: Bilaterally Incision: Clean dry and intact Dressing: Clean dry and intact Assessment: 44-year-old female postop day 1 from L5-S1 bilateral laminotomy decompression with microdiscectomy Plan: DC home when awake in stable today
--- NOTE | 2019-12-06 08:02 | P.DS ---
Providers Date of admission: 12/05/19 15:24 Expected date of discharge: 12/06/19 Attending physician: Rick Cowan Consults: 12/03/19 15:46 Consult Physician Stat Consulting Provider: Hieu Álvarez Consult Reason/Comments: Intractable back pain Do you want consulting provider notified?: Yes Primary care physician: [facility] Course: Patient a 44-year-old female who presented to the emergency department for the fourth time and recent visits for complaints of low back pain as well as left lower extremity pain progressive lesser strain weakness and difficulty with ambulation patient secondary to pain. The patient was found to have a large L5- S1 disc herniation on the left which is causing severe tensioning of her thecal sac as well as her S1 nerve root. The patient had tried conservative measures with in the form of medications pain control exercises and none of these seem to work for her and this was her fourth return to the emergency department complaining of this. She elected to undergo a L5-S1 decompressive laminotomy with microdiscectomy. She underwent this on 12/05/2019 successfully was recovered on the floor and has done well since surgery. She is passed physical therapy milestones has been up to the bathroom without any issues. Her pain is well-controlled and she states she is ready to go home. Assessment: 44-year-old female status post L5-S1 bilateral laminotomy decompression and discectomy for large L5-S1 herniated nucleus pulposus. Procedures: L5-S1 bilateral laminotomy decompression with microdiscectomy Patient Condition at Discharge: Stable Plan - Discharge Summary Discharge Rx Participant: No New Discharge Prescriptions: New Cyclobenzaprine [Flexeril] 10 mg PO TID PRN #40 tab PRN Reason: Spasms Ibuprofen [Motrin] 600 mg PO Q6HR PRN #90 tab PRN Reason: Mild Pain Hydrocodone/Acetaminophen [[place] 7.5-325] 1 tab PO Q4-6H PRN #56 tab PRN Reason: Pain Sennosides/Docusate Sodium [Senna Plus 8.6-50 mg Softgel] 1 each PO BID PRN #20 capsule PRN Reason: Constipation No Action HYDROcodone/APAP 7.5-325MG [[place] 7.5-325] 1 tab PO Q6H PRN PRN Reason: pain Orphenadrine [Norflex] 100 mg PO Q12H PRN PRN Reason: Muscle Spasm Discharge Medication List HYDROcodone/APAP 7.5-325MG [[place] 7.5-325] 1 tab PO Q6H PRN 12/03/19 [History] Orphenadrine [Norflex] 100 mg PO Q12H PRN 12/03/19 [History] Cyclobenzaprine [Flexeril] 10 mg PO TID PRN #40 tab 12/06/19 [Rx] Hydrocodone/Acetaminophen [[place] 7.5-325] 1 tab PO Q4-6H PRN #56 tab 12/06/19 [Rx] Ibuprofen [Motrin] 600 mg PO Q6HR PRN #90 tab 12/06/19 [Rx] Sennosides/Docusate Sodium [Senna Plus 8.6-50 mg Softgel] 1 each PO BID PRN #20 capsule 12/06/19 [Rx] Follow up Appointment(s)/Referral(s): Rajendra Sage DO [Primary Care Provider] - 1-2 days Patient Instructions/Handouts: Lumbar Discectomy (DC) Activity/Diet/Wound Care/Special Instructions: Spine Discharge and Recovery Instructions Date of Surgery: 12/05/2019 Diagnosis: [L5-S1 left large herniated disc with left lower extremity weakness] Procedure: [L5-S1 bilateral laminotomy decompression with microdiscectomy] Medications: [[place] 7.5/325 one to 2 by mouth every 4-6 hours when necessary pain, Flexeril 10 mg by mouth 3 times a day when necessary spasm, senna 8.6 mg by mouth twice a day when necessary constipation] All medication refills should be obtained through your primary care doctor or your clinic spine surgeon. Please discuss prescription refills at your follow up appointment. Do not call the hospital for medication refills. Dressing: Leave your dressing in place for a total of 5 days post operatively. Then you may remove your dressing and leave open to air. Keep the area clean and if not able to keep area clean, then cover with sterile gauze and tape. Showering: You may shower 3 days after your procedure allowing soap and water to run over incision. Do not scrub. Do not soak. Blot dry. Follow up: Please confirm a follow up appointment with your surgeon 2 weeks post operatively. Please make an appointment to follow up with your PCP in 1-2 weeks after surgery for evaluation 3 phase, 3-week plan POST OP WEEKS 1-3 1. Lifting/carrying/pushing/pulling limited to less than 5 pounds. 2. Do not sit for longer than 15 minutes at one time. Get up and walk around. Prolonged sitting is NOT advised. If you lay down, see if you can tolerate laying down on you front (belly side) 3. Walk for periods of 15 minutes = 1 mile but no longer; do it multiple times times each day. 4.Ice your low back after activity. POST OP WEEKS 3-6 1. Lifting limited to less than 20 pounds. 2. Do not sit for longer than 30 minutes at a time. Frequently change positions. Use a sit-to stand workstation or take frequent breaks from sitting if you have returned to work. 3. Walk for 30 minutes each day. If possible, do these three or more times a day POST OP WEEKS 6+ At your 6-week appointment we will give you a physical therapy referral to focus on a core stabilization and strengthening program. You should also work on leg & buttock strengthening, hamstring & quadriceps stretching, and continue a low impact aerobic activity program such as swimming, walking, or riding a stationary bicycle. During the initial 6 weeks after your surgery, you are at the highest risk of re-injuring your spine. You should generally avoid BLTs (bending, lifting and twisting combination motions) and follow the above guidelines to reduce the chance of reinjury. You can anticipate post op appointments in our office at approximately 3 weeks and 6 weeks after your surgery. INCISION CARE: If your incision is not draining you do NOT need to cover it with a dressing. Keep your incision clean, dry and intact. In most cases, we apply skin glue, leny or sutures to the incision at the time of surgery. This will be like a crust or have the appearance of a scab and will fall off in time on its own. The stitches or leny need to be removed at 3 weeks post op appointment. You may begin to shower 3 days after surgery (this allows the glue to jensen well). However, please avoid scrubbing the incision site or peeling off any of the skin glue. This will ensure optimal healing of your incision. Also, during this time avoid soaking the incision area in water - this includes swimming pools, hot tubs or baths. No ointments, lotions or oils on the incision until your surgeon allows. Leave leny, sutures or glue in place. Neurological dysfunction that comes on suddenly can also be a sign of a stroke. Below some common symptoms of a stroke are listed: B - balance difficulty such as sudden onset walking or leaning to one side - NEW E - eye problem such as sudden double vision or trouble seeing on one side - NEW F - Facial weakness or numbness on one side - NEW A - Arm or leg weakness or numbness on one side - NEW S - Slurred speech or difficulty with word finding - NEW T - Time is BRAIN! Call 911 as soon as you recognize these symptoms Diet: Consume a regular diet rich in vegetables and lean protein such as chicken or fish. You should consume in a ratio of approximately 20% fats|40% carbohydrates|40%protein. Vegetables, sweet potatoes, brown rice or quinoa are examples of good carbohydrates. Chips, white bread, cookies and sweets/sugar are examples of bad carbohydrates. Limit your bad carbs, go wild with good carbs. 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 (1) Get Active. Physical activity can help people lose weight, control high blood pressure and cholesterol, feel emotionally better, and sleep better. (2) Control Cholesterol. Avoid a diet high in saturated fat, trans fat, & cholesterol. Limit whole milk & cream, ice cream, butter, egg yolks, processed meats (like sausage and hot dogs), and fatty meats. Choose healthy foods that are low in saturated fat, trans fat and cholesterol which include: Fruits and vegetables, fiber rich grain products (like whole grain pasta and brown rice), lean meat such as chicken, fish, nuts, seeds, and legumes. (3) Eat Better. Eat small portions. Shop at the grocery with a list and do not stray from it. Tips for a healthy diet include: Limit sodium intake to le ss than 1500mg daily, avoid prepackaged, processed, and fast foods, choose a diet rich in fruits, vegetables, and whole grain, high fiber foods, and limit saturated & cholesterol in your diet. (4) Manage Blood Pressure. If you have high blood pressure, you should have a cuff at home so that you can check your blood pressure regularly. Be sure you have a good cuff. An arm one is generally better than a wrist one. Bring the cuff to a doctor's appointment to validate that the measurements that your cuff are taking are accurate. Take your blood pressure twice daily when you are sitting down and relaxing. Record the numbers in a log and bring this log with you to your doctors' appointments. (5) Lose Weight if your BMI is above 25. A healthy BMI is between 19-25. To calculate Your BMI, you may use a Standard BMI Calculator on the NIH BMI website: <www.nhlbi.nih.gov/guidelines/obesity/BMI/bmicalc.htm>. Weigh oneself daily. If you are overweight, set a goal to lose weight. A pound a week loss if needed is a good target. (6) Reduce Blood Sugar. Limit foods and liquids with "added sugars." (Added sugars include sucrose, fructose, glucose, maltose, dextrose, high fructose corn syrup, corn syrup, concentrated fruit juice and honey). (7) Stop Smoking. If you smoke, quitting smoking is one of the best things that you can do for your health. Smoking increases your risk of heart attack, stroke, and peripheral vascular disease, which is a build-up of plaque in your arteries. Please discard all the cigarettes and lighters in your house. Have a plan for what you will do when you have the urge to smoke. Direct and second- hand smoke shortens your life as well as the lives of your family, friends and others around you. For your health and the health of those around you, please consider quitting! Proper Bending Body Mechanics: Maintain a wide stance with one foot slightly in front of the other. Keep your back straight. Bend utilizing the strength in your hips and knees. Do not bend at the waist. Maintain the lifted object at your waist-level close to your body. Avoid lifting weight that causes immediately pain or pain anywhere in the body afterwards. Smoking/Nicotine If there was ever one thing that you could do to increase your overall health, decrease your risk of cardiovascular problems by about 39% the second you make the choice, it is to STOP SMOKING. Your body's most instant gratification is the second you stop smoking. We have all heard the studies, read the articles but it is true, smoking is extremely bad for your overall health, and moreover it is detrimental to your bone health. Nicotine, IN ANY FORM, kills bone cells, prevents your body from healing fractures, and significantly prolongs healing after surgery. In spine surgery specifically, it increases your risk of not healing your bones to create a fus ion and increases your risk of having a revision surgery due to this up to 60%. I know it is hard. I know it feels impossible. But there are ways. Take control of your life. We are here to help you through it. And when you are ready, ask us and we can direct you to help if you desire. Use the START Plan to Quit Smoking (please visit the Helpguide.org website listed below for more information): S = Set a quit date. Choose a date within the next 2 weeks, so you have enough time to prepare without losing your motivation to quit. If you mainly smoke at work, quit on the weekend, so you have a few days to adjust to the change. T = Tell family, friends, and co-workers that you plan to quit. Let your friends and family in on your plan to quit smoking and tell them you need their support and encouragement to stop. Look for a quit jasper who wants to stop smoking as well. You can help each other get through the rough times. A = Anticipate and plan for the challenges you'll face while quitting. Most people who begin smoking again do so within the first 3 months. You can help yourself make it through by preparing ahead for common challenges, such as nicotine withdrawal and cigarette cravings. R = Remove cigarettes and other tobacco products from your home, car, and work. Throw away all your cigarettes (no emergency pack!), lighters, ashtrays, and matches. Wash your clothes and freshen up anything that smells like smoke. Shampoo your car, clean your drapes and carpet, and steam your furniture. T = Talk to your doctor about getting help to quit. Your doctor can prescribe medication to help with withdrawal and suggest other alternatives. If you can't see a doctor, you can get many products over the counter at your local pharmacy or grocery store, including the nicotine patch, nicotine lozenges, and nicotine gum. Resources for Quitting Smoking: <https://www.[place].gov/documents/[facility]/Quit_Tobacco_Resources_for_patients_313 480_7.pdf> Supplementation: Take recommended dosages of Vitamin D and Calcium to help fortify your bones and help them to heal. See your health maintenance packet for dosages and recommended levels. DVT/VTE prophylaxis: You will be given compression stockings from the hospital. Wear these daily for the first two weeks after surgery. You may take them off at night. You may be prescribed a medication to help thin your blood. Take this as directed. If you are not prescribed this medication, early and frequent ambulation has been shown to be the best prophylaxis to deep vein thrombosis and sequelae related to this event. Discharge Disposition: HOME SELF-CARE
[2019-12-06 09:30] LABS: African American GFR (CKD) 130.3 (60.0-200.0); BUN/Creat Ratio 31.67 Ratio (12.00-20.00); Calcium 8.6 mg/dL (8.7-10.3); Non-African American GFR(CKD) 112.4 (60.0-200.0); Potassium 4.4 mmol/L (3.5-5.5)
--- NOTE | 2019-12-06 15:02 | PN ---
PROGRESS NOTE DATE OF SERVICE: 12/06/2019 This 44-year-old woman who was admitted with severe back pain also had increased WBC. No chest pain. No palpitations. No fever. PHYSICAL EXAMINATION: Alert and oriented times three. Pulse is 70. Blood pressure 115/70, respirations 16, temperature 98 degrees, pulse ox 97% on room air. HEENT: Conjunctivae normal. NECK: No JVD. CARDIOVASCULAR: S1, S2 muffled. RESPIRATIONS: Breath sounds diminished in the bases. No rhonchi. No crackles. ABDOMEN: Soft, nontender. LEGS are no edema. No swelling. NERVOUS SYSTEM: No focal deficits. BACK: Status post surgery. LABS: WBC 11.1 sodium 138, potassium 3.4, calcium is 8.6. ASSESSMENT: 1. Severe back pain with L5-S1 herniated nucleus pulposus large with radiculopathy status post L5-S1 bilateral laminectomy with microdiskectomy. 2. Increased WBC. 3. History of cholecystectomy. 4. History of tonsillectomy. 5. History of gastric sleeve. RECOMMENDATIONS AND DISCUSSION: I recommend to continue current medications, management and symptomatic treatment. I recommend resume the home medications. DVT prophylaxis. The rest of the recommendations per Orthopedic Surgery. Incentive spirometry. Follow with primary physician in the outpatient setting. Further recommendations to follow. MMODL / IJN: [id number] /
== END 2019-12-06 13:28 | disposition home or self-care (01) | DRG 520 ==
LOC: EC 11:39 → 6NMEDSUR 15:46 → 3NCARDOBS 20:51 → 4SSUR 12-05 11:53 → OBSVTOIN 12-05 15:24
PROVIDERS: ADMIT Hospitalist; ATTEND Hospitalist
PROC: 0SB40ZZ Excision of Lumbosacral Disc, Open Approach (ICD-10-PCS; principal; 2019-12-05 08:00)
DX: M51.17 Intervertebral disc disorders with radiculopathy, lumbosacral region (principal); E66.9 Obesity, unspecified; G89.29 Other chronic pain; M62.830 Muscle spasm of back; Z68.31 Body mass index [BMI] 31.0-31.9, adult; Z90.49 Acquired absence of other specified parts of digestive tract; Z90.89 Acquired absence of other organs; Z87.19 Personal history of other diseases of the digestive system; Z98.84 Bariatric surgery status; Z98.890 Other specified postprocedural states; Z88.0 Allergy status to penicillin
CPT/HCPCS: 36415; 72100; 72114; 72131; 72158; 80048; 84703; 85025; 85610; 85652; 85730; 86140; 96374; 96375; 96376; 99285

== ENCOUNTER → 2020-07-22 | Outpatient (CLI) | payer BC, OTHER ==
--- NOTE | 2020-07-23 05:01 | MR ---
EXAMINATION TYPE: MR lumbar spine wo con DATE OF EXAM: 07/22/2020 COMPARISON: 12/04/2019 HISTORY: LBP, LLE radiculopathy, surgery 7 mos ago. Multiplanar multiecho imaging of the lumbar spine was performed without contrast. The lumbar vertebra have normal alignment. Disc spaces are fairly normal. There is no compression fra cture. Lumbar nerve roots appear intact. The neural foramina are fairly well-maintained. There is isis e intermediate signal in the posterior lumbar spine at the L5-S1 level on the left side at the level of the pedicle and lamina consistent with previous surgery. This could be some epidural scarring. The re is clearing of the large posterior left side disc herniation at L5-S1 compared to old exam. I see no spinal stenosis. The sacroiliac joints are intact. There is no lumbar paraspinal mass. IMPRESSION: Left-sided postsurgical changes with probably some epidural scarring on the left side at L5-S1. There is apparent removal of the large posterior disc herniation on the left side and L5-S1 compared to ol d exam. No spinal stenosis.
== END | disposition home or self-care (01) ==
LOC: RADMRIMAIN 17:21
PROVIDERS: ATTEND Orthopaedic Surgery
DX: M54.5 Low back pain (principal)
CPT/HCPCS: 72148

== ENCOUNTER 2021-01-04 20:10 | Emergency (ER) | payer BC, OTHER ==
--- NOTE | 2021-01-04 21:24 | XR ---
EXAMINATION TYPE: XR chest 2V DATE OF EXAM: 01/04/2021 COMPARISON: NONE HISTORY: Cough and congestion TECHNIQUE: 2 views FINDINGS: Heart and mediastinum are normal. Lungs are clear of consolidation. Diaphragm is normal. Luis ny thorax is intact there is slight increased lung markings in the lower lung guillaume. IMPRESSION: Slight increased lung markings without consolidation.
[2021-01-04] MEDS ORDERED: DEXAMETHASONE SOD PHOSPHATE 10 MG/ML 1 ML VIAL IVP STA (22:01)
--- NOTE | 2021-01-04 22:24 | ED ---
SOB HPI - General Chief Complaint: Shortness of Breath Stated Complaint: COVID+ Time Seen by Provider: 01/04/21 21:55 Source: patient, RN notes reviewed Mode of arrival: ambulatory Limitations: no limitations - History of Present Illness Initial Comments: Patient is a 45-year-old female that presents to the emergency department complaining of being Covid positive starting on the . She tested positive on the . She no she came in for monoclonal antibody infusion. Patient was otherwise well-appearing in no apparent distress or pain. She denied any headache nausea vomiting diarrhea constipation fever fatigue chills. - Related Data Home Medications Medication Instructions Recorded Confirmed HYDROcodone/APAP 7.5-325MG [[place] 1 tab PO Q6H PRN 12/03/19 12/03/19 7.5-325] Orphenadrine [Norflex] 100 mg PO Q12H PRN 12/03/19 12/03/19 Previous Rx's Medication Instructions Recorded Cyclobenzaprine [Flexeril] 10 mg PO TID PRN #40 tab 12/06/19 Hydrocodone/Acetaminophen [[place] 1 tab PO Q4-6H PRN #56 tab 12/06/19 7.5-325] Ibuprofen [Motrin] 600 mg PO Q6HR PRN #90 tab 12/06/19 Sennosides/Docusate Sodium [Senna 1 each PO BID PRN #20 capsule 12/06/19 Plus 8.6-50 mg Softgel] Allergies Allergy/AdvReac Type Severity Reaction Status Date / Time Penicillins Allergy Rash/Hives Verified 01/04/21 20:45 Review of Systems ROS Statement: Those systems with pertinent positive or pertinent negative responses have been documented in the HPI. ROS Other: All systems not noted in ROS Statement are negative. Past Medical History Past Medical History: No Reported History Additional Past Medical History / Comment(s): COVID 12/29/20. back pain History of Any Multi-Drug Resistant Organisms: None Reported Past Surgical History: Back Surgery, Bariatric Surgery, Cholecystectomy, Tonsillectomy Additional Past Surgical History / Comment(s): gastric sleeve Past Anesthesia/Blood Transfusion Reactions: No Reported Reaction Past Psychological History: No Psychological Hx Reported Smoking Status: Never smoker Past Alcohol Use History: None Reported Past Drug Use History: None Reported General Exam Limitations: no limitations General appearance: alert, in no apparent distress Head exam: Present: atraumatic, normocephalic, normal inspection Eye exam: Present: normal appearance, PERRL, EOMI. Absent: scleral icterus, conjunctival injection, periorbital swelling ENT exam: Present: normal exam, mucous membranes moist Neck exam: Present: normal inspection Respiratory exam: Present: normal lung sounds bilaterally. Absent: respiratory distress, wheezes, rales, rhonchi, stridor Cardiovascular Exam: Present: regular rate, normal rhythm, normal heart sounds. Absent: systolic murmur, diastolic murmur, rubs, gallop, clicks Extremities exam: Present: normal inspection, full ROM, normal capillary refill. Absent: tenderness, pedal edema, joint swelling, calf tenderness Neurological exam: Present: alert, oriented X3 Psychiatric exam: Present: normal affect, normal mood Skin exam: Present: warm, dry, intact, normal color. Absent: rash Course Vital Signs 01/04/21 20:40 Temperature 97.7 F Pulse Rate 95 Respiratory 20 Rate Blood Pressure 118/79 O2 Sat by Pulse 98 Oximetry Medical Decision Making - Medical Decision Making 45-year-old female Covid-positive for 6 days. Chest x-ray, 10 mg of Decadron ordered. Patient does meet criteria for monoclonal antibody infusion. She wishes to undergo infusion. Patient is agreeable with discharge home after. Chest x-ray shows slight increased lung markings without consolidation. Case discussed with Dr. Coleman, patient can discharge home. - Radiology Data Radiology results: report reviewed, image reviewed Chest x-ray: Slight increased lung markings without consolidation. Disposition Clinical Impression: COVID Disposition: HOME SELF-CARE Condition: Stable Instructions (If sedation given, give patient instructions): Coronavirus Disease 2019 (COVID-19) Additional Instructions: Please return to the Emergency Department if symptoms worsen or any other concerns. Is patient prescribed a controlled substance at d/c from ED?: No Referrals: Rajendra Sage DO [Primary Care Provider] - 1-2 days Time of Disposition: 22:24
[2021-01-04] MEDS ORDERED: SODIUM CHLORIDE 0.9% 50 ML IVPB ONE (22:30)
[2021-01-04] MEDS ORDERED: CASIRIVIMAB (REGN10933) (EUA) 600 MG, IMDEVIMAB (REGN10987) (EUA) 600 MG in SODIUM CHLO... IVPB ONE (22:45)
[2021-01-04 23:52] VITALS: BP 120/74; PULSE 74; RESP 18; TEMP 98
== END 2021-01-05 00:45 | disposition home or self-care (01) ==
LOC: EC 20:10
DX: U07.1 COVID-19 (principal); Z86.16 Personal history of COVID-19; Z88.8 Allergy status to other drugs, medicaments and biological substances
CPT/HCPCS: 71046; 99284; 96365; 96375; J1100; Q0243

== ENCOUNTER 2021-11-04 07:21 | Emergency (ER) | payer BC ==
[2021-11-04 07:31] VITALS: RESP 16; TEMP 98
[2021-11-04] MEDS ORDERED: KETOROLAC 15 MG/ML 1 ML VIAL IVP STA (07:51)
--- NOTE | 2021-11-04 08:07 | ED ---
General Adult HPI - General Chief complaint: Abdominal Pain Stated complaint: Abd pain Time Seen by Provider: 11/04/21 07:35 Source: patient, RN notes reviewed, old records reviewed Mode of arrival: ambulatory Limitations: no limitations - History of Present Illness Initial comments: This is a 46-year-old female presents emergency Department complaining of 3 weeks of abdominal pain. Patient states she states still distal pain anytime she tries to sit up or move or lift things at work it hurts. Patient states the abdominal pain mostly is just above the umbilicus up into the epigastric region. Patient states she also has some pain in the lower abdomen area below the umbilicus but only after the pain starts hurting up First and then it extends l ower. Patient denies any fever chills per patient denies any nausea vomiting diarrhea. Patient has any back pain. Patient denies any dysuria hematuria urinary frequency. Patient denies any vaginal bleeding or discharge. - Related Data Home Medications Medication Instructions Recorded Confirmed HYDROcodone/APAP 7.5-325MG [[place] 1 tab PO Q6H PRN 12/03/19 12/03/19 7.5-325] Orphenadrine [Norflex] 100 mg PO Q12H PRN 12/03/19 12/03/19 Previous Rx's Medication Instructions Recorded Cyclobenzaprine [Flexeril] 10 mg PO TID PRN #40 tab 12/06/19 Hydrocodone/Acetaminophen [[place] 1 tab PO Q4-6H PRN #56 tab 12/06/19 7.5-325] Ibuprofen [Motrin] 600 mg PO Q6HR PRN #90 tab 12/06/19 Sennosides/Docusate Sodium [Senna 1 each PO BID PRN #20 capsule 12/06/19 Plus 8.6-50 mg Softgel] Allergies Allergy/AdvReac Type Severity Reaction Status Date / Time Penicillins Allergy Rash/Hives Verified 11/04/21 07:31 Review of Systems ROS Statement: Those systems with pertinent positive or pertinent negative responses have been documented in the HPI. ROS Other: All systems not noted in ROS Statement are negative. Past Medical History Past Medical History: No Reported History Additional Past Medical History / Comment(s): COVID 12/29/20. back pain History of Any Multi-Drug Resistant Organisms: None Reported Past Surgical History: Back Surgery, Bariatric Surgery, Cholecystectomy, Tonsillectomy Additional Past Surgical History / Comment(s): gastric sleeve Past Anesthesia/Blood Transfusion Reactions: No Reported Reaction Past Psychological History: No Psychological Hx Reported Smoking Status: Current every day smoker Past Alcohol Use History: None Reported Past Drug Use History: None Reported General Exam - General Exam Comments Initial Comments: GENERAL: Patient is well-developed and well-nourished. Patient is nontoxic and well- hydrated and is in mild distress. ENT: Neck is soft and supple. No significant lymphadenopathy is noted. Oropharynx is clear. Moist mucous membranes. Neck has full range of motion without eliciting any pain. EYES: The sclera were anicteric and conjunctiva were pink and moist. Extraocular movements were intact and pupils were equal round and reactive to light. Eyelids were unremarkable. PULMONARY: Unlabored respirations. Good breath sounds bilaterally. No audible rales rhonchi or wheezing was noted. CARDIOVASCULAR: There is a regular rate and rhythm without any murmurs gallops or rubs. ABDOMEN: Soft and nontender with normal bowel sounds. SKIN: Skin is clear with no lesions or rashes and otherwise unremarkable. NEUROLOGIC: Patient is alert and oriented x3. Cranial nerves II through XII are grossly intact. Motor and sensory are also intact. Normal speech, volume and content. Symmetrical smile. MUSCULOSKELETAL: Normal extremities with adequate strength and full range of motion. LYMPHATICS: No significant lymphadenopathy is noted PSYCHIATRIC: Normal psychiatric evaluation. Limitations: no limitations Course Vital Signs 11/04/21 07:29 Temperature 98 F Pulse Rate 97 Respiratory 16 Rate Blood Pressure 132/70 O2 Sat by Pulse 100 Oximetry Medical Decision Making - Medical Decision Making I went back into reevaluate the patient she was not having any pain unless she was moving. - Lab Data Result diagrams: 11/04/21 08:02 11/04/21 08:02 Lab Results 11/04/21 11/04/21 11/04/21 Range/Units 08:02 08:02 08:02 WBC 10.7 H (3.8-10.6) k/uL RBC 3.90 (3.80-5.40) m/uL Hgb 12.0 (11.4-16.0) gm/dL Hct 36.3 (34.0-46.0) % MCV 93.2 (80.0-100.0) fL MCH 30.8 (25.0-35.0) pg MCHC 33.1 (31.0-37.0) g/dL RDW 11.8 (11.5-15.5) % Plt Count 444 (150-450) k/uL MPV 8.3 Neutrophils % 78 % Lymphocytes % 13 % Monocytes % 6 % Eosinophils % 1 % Basophils % 1 % Neutrophils # 8.3 H (1.3-7.7) k/uL Lymphocytes # 1.4 (1.0-4.8) k/uL Monocytes # 0.6 (0-1.0) k/uL Eosinophils # 0.1 (0-0.7) k/uL Basophils # 0.1 (0-0.2) k/uL Sodium 141 (137-145) mmol/L Potassium 3.7 (3.5-5.1) mmol/L Chloride 103 (98-107) mmol/L Carbon Dioxide 29 (22-30) mmol/L Anion Gap 9 mmol/L BUN 6 L (7-17) mg/dL Creatinine 0.53 (0.52-1.04) mg/dL Est GFR (CKD-EPI)AfAm >90 (>60 ml/min/1.73 sqM) Est GFR (CKD-EPI)NonAf >90 (>60 ml/min/1.73 sqM) Glucose 92 (74-99) mg/dL Calcium 8.7 (8.4-10.2) mg/dL Total Bilirubin 1.1 (0.2-1.3) mg/dL AST 15 (14-36) U/L ALT 8 (4-34) U/L Alkaline Phosphatase 101 (38-126) U/L Total Protein 6.8 (6.3-8.2) g/dL Albumin 3.9 (3.5-5.0) g/dL Amylase 35 (30-110) U/L Lipase 33 (23-300) U/L Urine Color Yellow Urine Appearance Turbid H (Clear) Urine pH 6.0 (5.0-8.0) Ur Specific [place] 1.020 (1.001-1.035) Urine Protein 1+ H (Negative) Urine Glucose (UA) Negative (Negative) Urine Ketones Negative (Negative) Urine Blood Trace H (Negative) Urine Nitrite Negative (Negative) Urine Bilirubin Negative (Negative) Urine Urobilinogen 8.0 (<2.0) mg/dL Ur Leukocyte Esterase Large H (Negative) Urine RBC 12 H (0-5) /hpf Urine WBC 154 H (0-5) /hpf Ur Squamous Epith Cells 40 H (0-4) /hpf Urine Bacteria Few H (None) /hpf Urine Mucus Many H (None) /hpf 11/04/21 Range/Units 09:04 WBC (3.8-10.6) k/uL RBC (3.80-5.40) m/uL Hgb (11.4-16.0) gm/dL Hct (34.0-46.0) % MCV (80.0-100.0) fL MCH (25.0-35.0) pg MCHC (31.0-37.0) g/dL RDW (11.5-15.5) % Plt Count (150-450) k/uL MPV Neutrophils % % Lymphocytes % % Monocytes % % Eosinophils % % Basophils % % Neutrophils # (1.3-7.7) k/uL Lymphocytes # (1.0-4.8) k/uL Monocytes # (0-1.0) k/uL Eosinophils # (0-0.7) k/uL Basophils # (0-0.2) k/uL Sodium (137-145) mmol/L Potassium (3.5-5.1) mmol/L Chloride (98-107) mmol/L Carbon Dioxide (22-30) mmol/L Anion Gap mmol/L BUN (7-17) mg/dL Creatinine (0.52-1.04) mg/dL Est GFR (CKD-EPI)AfAm (>60 ml/min/1.73 sqM) Est GFR (CKD-EPI)NonAf (>60 ml/min/1.73 sqM) Glucose (74-99) mg/dL Calcium (8.4-10.2) mg/dL Total Bilirubin (0.2-1.3) mg/dL AST (14-36) U/L ALT (4-34) U/L Alkaline Phosphatase (38-126) U/L Total Protein (6.3-8.2) g/dL Albumin (3.5-5.0) g/dL Amylase (30-110) U/L Lipase (23-300) U/L Urine Color Light Yellow Urine Appearance Clear (Clear) Urine pH 7.0 (5.0-8.0) Ur Specific [place] 1.005 (1.001-1.035) Urine Protein Negative (Negative) Urine Glucose (UA) Negative (Negative) Urine Ketones Negative (Negative) Urine Blood Negative (Negative) Urine Nitrite Negative (Negative) Urine Bilirubin Negative (Negative) Urine Urobilinogen 2.0 (<2.0) mg/dL Ur Leukocyte Esterase Negative (Negative) Urine RBC (0-5) /hpf Urine WBC (0-5) /hpf Ur Squamous Epith Cells (0-4) /hpf Urine Bacteria (None) /hpf Urine Mucus (None) /hpf Disposition Clinical Impression: Abdominal muscle pain Disposition: HOME SELF-CARE Condition: Good Instructions (If sedation given, give patient instructions): Muscle Strain (ED) Is patient prescribed a controlled substance at d/c from ED?: No Referrals: Rajendra Sage DO [Primary Care Provider] - 1-2 days Time of Disposition: 09:12
[2021-11-04 08:17] LABS: Basophils # (A) 0.1 k/uL (0-0.2); Basophils % (A) 1 %; Eosinophils # (A) 0.1 k/uL (0-0.7); Eosinophils % (A) 1 %; HCT 36.3 % (34.0-46.0); Lymphocytes # (A) 1.4 k/uL (1.0-4.8); Lymphocytes % (A) 13 %; MCH 30.8 pg (25.0-35.0); MCHC 33.1 g/dL (31.0-37.0); MCV 93.2 fL (80.0-100.0); Mean Platelet Volume 8.3; Monocytes # (A) 0.6 k/uL (0-1.0); Monocytes % (A) 6 %; Neutrophils # (A) 8.3 k/uL (1.3-7.7); Neutrophils % (A) 78 %; Platelet Count 444 k/uL (150-450); RDW 11.8 % (11.5-15.5); WBC 10.7 k/uL (3.8-10.6)
[2021-11-04 08:20] LABS: Appearance,Urine Turbid (Clear); Bacteria,Urine Few /hpf; Bilirubin,Urine Negative (Negative); Blood,Urine Trace (Negative); Color,Urine Yellow; Glucose,Urine (UA) Negative (Negative); Ketones,Urine Negative (Negative); Leukocyte Esterase,Urine Large (Negative); Mucus,Urine Many /hpf; Nitrite,Urine Negative (Negative); Protein,Urine 1+ (Negative); RBC,Urine 12 /hpf (0-5); Squamous Epithelial Cell,Urine 40 /hpf (0-4); WBC,Urine 154 /hpf (0-5)
[2021-11-04 08:40] LABS: ALT 8 U/L (4-34); AST 15 U/L (14-36); African American GFR (CKD) >90 (>60 ml/min/1.73 sqM); Albumin 3.9 g/dL (3.5-5.0); Alkaline Phosphatase 101 U/L (38-126); Amylase 35 U/L (30-110); Anion Gap 9 mmol/L; Blood Urea Nitrogen 6 mg/dL (7-17); Calcium 8.7 mg/dL (8.4-10.2); Carbon Dioxide 29 mmol/L (22-30); Chloride 103 mmol/L (98-107); Glucose 92 mg/dL (74-99); Lipase 33 U/L (23-300); Non-African American GFR(CKD) >90 (>60 ml/min/1.73 sqM); Potassium 3.7 mmol/L (3.5-5.1); Sodium 141 mmol/L (137-145); Total Bilirubin 1.1 mg/dL (0.2-1.3); Total Protein 6.8 g/dL (6.3-8.2)
[2021-11-04 09:10] LABS: Appearance,Urine Clear (Clear); Bilirubin,Urine Negative (Negative); Blood,Urine Negative (Negative); Color,Urine Light Yellow; Glucose,Urine (UA) Negative (Negative); Ketones,Urine Negative (Negative); Leukocyte Esterase,Urine Negative (Negative); Nitrite,Urine Negative (Negative); Protein,Urine Negative (Negative); Specific Gravity,Urine 1.005 (1.001-1.035)
[2021-11-04 09:28] VITALS: BP 121/74; PULSE 70
== END 2021-11-04 09:28 | disposition home or self-care (01) ==
LOC: EC 07:21
DX: M79.18 Myalgia, other site (principal); F17.200 Nicotine dependence, unspecified, uncomplicated; Z88.0 Allergy status to penicillin; Z79.899 Other long term (current) drug therapy
CPT/HCPCS: 36415; 80053; 82150; 83690; 85025; 81003; 81001; 99284; 96374; J1885

== ENCOUNTER → 2021-12-01 | Outpatient (CLI) | payer BC ==
--- NOTE | 2021-12-01 11:56 | CT ---
EXAMINATION TYPE: CT abdomen wo/w con DATE OF EXAM: 12/01/2021 COMPARISON: NONE HISTORY: 46-year-old female R10.9 Unspecified abdominal pain TECHNIQUE: Contiguous axial scanning of the abdomen before and after administration of 70 ml Isovue 3 00 IV contrast. Delayed images through the kidneys and coronal/sagittal reconstructions performed. CT DLP: 721.70 mGycm Automated exposure control for dose reduction was used. FINDINGS: Heart normal size without pericardial effusion. Mild dependent atelectasis in the lower lungs. Tiny hiatal hernia. Postoperative changes status post sleeve gastrectomy noted. Liver enlarged at 20.6 cm but without any significant fatty infiltration identified. Portal venous sy stem is patent. No biliary ductal dilatation. Gallbladder not seen. It may be surgically absent. Adrenal glands, kidneys, spleen, and pancreas within normal limits. No dilated small bowel or free air. No upper abdominal ascites. [id number] stool without pericolic inflammatory change. Appendix appears normal. There appears to be retroperitoneal lymphadenopathy measuring up to 1.5 cm aortocaval and 1.6 cm left periaortic. Partially visualized in the uppermost pelvis, complex bilateral adnexal areas of soft tissue and flui d measuring up to 8.2 x 3.8 cm on the right and 5.6 x 2.6 cm on the left. Surrounding fat stranding i s noted. Areas are only partially visualized as the pelvis is not imaged. Bones: Moderate degenerative disc disease with disc space narrowing L5-S1. IMPRESSION: 1. BILATERAL COMPLEX ADNEXAL LESIONS COMPRISED OF BOTH FLUID AND SOFT TISSUE MEASURING UP TO 8.2 CM O N THE RIGHT AND 5.6 CM ON THE LEFT. THERE SEEMS TO BE SURROUNDING INFLAMMATORY CHANGE. EARLY FOR BILA TERAL [place]-OVARIAN ABSCESSES OR CYSTIC EPITHELIAL OVARIAN NEOPLASMS. NOTE THAT THESE AREAS ARE ONLY P ARTIALLY VISUALIZED SCANNING ONLY INCLUDED THE ABDOMEN. PHYSICIAN AIDE EVALUATION RECOMMENDED. 2. RETROPERITONEAL LYMPHADENOPATHY MEASURING UP TO 1.6 CM MAY BE REACTIVE. NEOPLASTIC ETIOLOGY SHOULD BE EXCLUDED. 3. INCIDENTAL: STATUS POST SLEEVE GASTRECTOMY WITH A TINY HIATAL HERNIA. HEPATOMEGALY AT 20.6 CM. A [place] level critical message alert has been initiated for Rajendra Sage DO via the [employer] Critical Results System on 12/01/2021 11:53 AM. This message alert has been sent to Rajendra barlow DO via the preferences provided by the clinician for the receipt of Radiology Critical Finding s. Message ID [id number].
== END | disposition home or self-care (01) ==
LOC: RADCTMAIN 09:16
PROVIDERS: ATTEND Family Medicine
DX: R10.9 Unspecified abdominal pain (principal)
CPT/HCPCS: 74170; Q9967 ×2